=== PATIENT | male | born 1955 | race Caucasian/White ===

== ENCOUNTER 2016-11-26 16:25 | Inpatient (IN) | payer BC ==
[2016-11-26] MEDS ORDERED: CLINDAMYCIN PHOSPHATE 600 MG/4 ML VIAL ONE (17:02)
[2016-11-26] MEDS ORDERED: MORPHINE SULFATE 4 MG/ML SYRINGE ONE (17:03)
[2016-11-26] MEDS ORDERED: PROCHLORPERAZINE 5 MG/ML 2 ML VIAL ONE (17:03)
[2016-11-26] MEDS ORDERED: LACTATED RINGERS 1,000 ML ONE (17:03)
[2016-11-26] MEDS ORDERED: SODIUM CHLORIDE 0.9% 100 ML IV ONE (17:04)
[2016-11-26] MEDS ORDERED: VANCOMYCIN HCL 2.25 G in SODIUM CHLORIDE 0.9% 500 ML IV ONE (17:30)
[2016-11-26] MEDS ORDERED: PIPERACILLIN-TAZO PREMIX BAG 50 ML IV ONE (17:33)
[2016-11-26 17:50] LABS: ABSOLUTE NEUTROPHIL COUNT 18.2 K/mm3 (1.8-7.7); BASO # 0.1 K/mm3 (0.0-0.2); BASO % 0.2 % (0.2-1.0); EOS % 0.1 % (0.9-2.9); HEMATOCRIT 34.9 % (32.0-52.0); HEMOGLOBIN 11.9 gm/l (14.0-18.0); IMM NEUT # 0.2 K/mm3 (0-0.2); IMM NEUT% 0.7 % (0-1); LYMPH # 1.4 (1.0-4.8); LYMPH % 6.5 % (15-45); MEAN CELL VOLUME 90.9 fl (80.0-94.0); MEAN CORPUSCULAR HGB CONC 34.1 g/dl (33.0-37.0); MEAN PLATELET VOLUME 11.2 fl (7.4-10.4); MONO # 1.5 (0.0-0.8); NEUT % 85.5 % (43-75); PLATELET COUNT 300 K/mm3 (130-400); RED CELL DISTRIBUTION WIDTH 12.5 % (11.5-14.5)
[2016-11-26 18:06] LABS: ALB/GLOB RATIO 0.9 (>1.0); ALBUMIN 3.8 gm/dL (3.5-5.7); CALCIUM 9.5 mg/dL (8.6-10.3); MAGNESIUM 1.6 mg/dL (1.9-2.7)
[2016-11-26 18:14] LABS: INR 0.91; PROTHROMBIN TIME 9.6 SECONDS (9.3-11.4)
--- NOTE | 2016-11-26 18:17 | US ---
EXAMINATION: DUPLEX VENOUS DOPPLER ULTRASOUND: RIGHT LOWER EXTREMITY CLINICAL INDICATION: Right lower committee swelling. Cellulitis. COMPARISON: None TECHNIQUE: Both grayscale imaging and Doppler interrogation with spectral analysis and color flow was performed. Compression and flow with augmentation was also utilized. The common femoral vein to the posterior tibial and peroneal veins were assessed. FINDINGS:Appropriate compressibility and flow is demonstrated in the right common femoral, superficial femoral, popliteal, and peroneal and posterior tibial veins proximally. Normal Doppler flow with augmentation was also elicited. IMPRESSION: No evidence of right lower extremity deep venous thrombosis. The findings were uploaded to the electronic medical record for review at approximately 6:17 PM 11/26/2016
[2016-11-26 18:41] LABS: BAND 8 % (0-10); BASOPHIL 0 % (0-1); EOSINOPHIL 0 % (1-3); LYMPHOCYTE 12 % (15-45); MONOCYTE 2 % (4-12); NEUTROPHILS 78 % (43-75); PLATELET ESTIMATE NORMAL (NORMAL); TOTAL CELLS COUNTED 100
[2016-11-26 20:25] VITALS: BMI 32.7
[2016-11-26] MEDS ORDERED: BLISTEX LIPSTICK 1 EACH TP PRN (21:35)
[2016-11-26] MEDS ORDERED: BISACODYL 5 MG TABLET.EC PO PRN (21:35)
[2016-11-26] MEDS ORDERED: BISACODYL 10 MG SUP PR PRN (21:35)
[2016-11-26] MEDS ORDERED: MENTHOL/CETYLPYRD 1 EACH LOZENGE PO PRN (21:35)
[2016-11-26] MEDS ORDERED: ONDANSETRON 4 MG/2ML 2 ML VIAL IV PRN (21:39)
[2016-11-26] MEDS ORDERED: NICOTINE POLACRILEX 2 MG GUM PO PRN (21:51)
[2016-11-26] MEDS ORDERED: PUMP TUBING ONE (22:19)
[2016-11-26] MEDS: GABAPENTIN 300 MG CAPSULE PO SCH (22:24)
[2016-11-26] MEDS: SODIUM CHLORIDE 0.9% 1,000 ML IV SCH (22:24)
[2016-11-26] MEDS: OXYCODONE HCL 5 MG TABLET PO SCH (22:24)
[2016-11-26] MEDS: INSULIN GLARGINE (DOSE) 100 UNITS/ML UNIT SUB-Q SCH (22:25)
[2016-11-26] MEDS: ENOXAPARIN SODIUM 40 MG/0.4 ML SYRINGE SUB-Q SCH (22:25)
[2016-11-27] MEDS: PIPERACILLIN-TAZO PREMIX BAG 3.375 G in Premix (D5W) 50 ml 1 EACH IV SCH ×5 (00:24→23:04)
[2016-11-27] MEDS ORDERED: WATER FOR IRRIG,STERILE 500 ML BOT ONE (00:38)
[2016-11-27] MEDS: OXYCODONE HCL 5 MG TABLET PO SCH ×6 (04:07→20:56)
[2016-11-27] MEDS: SODIUM CHLORIDE 0.9% 1,000 ML IV SCH ×3 (05:40→23:55)
[2016-11-27 06:31] LABS: ABSOLUTE NEUTROPHIL COUNT 13.4 K/mm3 (1.8-7.7); BASO # 0.1 K/mm3 (0.0-0.2); BASO % 0.4 % (0.2-1.0); EOS # 0.1 (0.0-0.5); EOS % 0.8 % (0.9-2.9); HEMATOCRIT 32.8 % (32.0-52.0); HEMOGLOBIN 11.1 gm/l (14.0-18.0); IMM NEUT # 0.2 K/mm3 (0-0.2); IMM NEUT% 0.9 % (0-1); LYMPH # 1.8 (1.0-4.8); LYMPH % 10.2 % (15-45); MEAN CELL VOLUME 91.1 fl (80.0-94.0); MEAN CORPUSCULAR HEMOGLOBIN 30.8 pg (27.0-31.0); MEAN CORPUSCULAR HGB CONC 33.8 g/dl (33.0-37.0); MEAN PLATELET VOLUME 10.8 fl (7.4-10.4); MONO # 1.6 (0.0-0.8); MONO % 9.6 % (4-12); NEUT % 78.1 % (43-75); PLATELET COUNT 279 K/mm3 (130-400); RED CELL DISTRIBUTION WIDTH 12.5 % (11.5-14.5)
[2016-11-27 06:48] LABS: ALB/GLOB RATIO 0.9 (>1.0); ALBUMIN 3.4 gm/dL (3.5-5.7); CALCIUM 9.2 mg/dL (8.6-10.3)
--- NOTE | 2016-11-27 07:32 | HP ---
Umberto Alexandra ADMIT DATE: 11/26/2016 CHIEF COMPLAINT: Leg redness and swelling. HISTORY OF PRESENT ILLNESS: Umberto is a 60-year-old male with diabetes and a history of a complicated septic arthritis in his left hip back in 2014. He has also had a right sided hip arthroplasty and right sided tib/fib open reduction internal fixation in the past. He presented to the emergency room this evening with about a two day history of gradually worsening redness, swelling, and warmth starting in the right foot and now working its way up the right calf and into the right groin area. He has had no fevers, no chills. He feels well otherwise, really no pain. Given his history of complicated septic arthritis he became concerned about infection and presented to the emergency room for evaluation. In the emergency room, he was worked up and found to have a low grade fever, elevated white count, and evidence of a cellulitis. Given his history there was concern that this may end up being a complicated issue, so he was admitted to the hospitalist service with plans for IV antibiotics and orthopedic consult. REVIEW OF SYSTEMS: No headache, no visual disturbance, difficulty swallowing. No chest pain or shortness of breath. No cough. No heart palpitations. No nausea, vomiting, diarrhea. No change in bowel or bladder habits. He does have the right sided redness and warmth of the lower extremity as noted above. PAST MEDICAL HISTORY: 1. Septic left hip, onset 11/2014. He ended up undergoing extended antibiotics and antibiotic spacer placement performed on 01/15/2015 followed by further antibiotics and followed then by a left total hip arthroplasty 06/2015/ The initial septic arthritis was felt to be spontaneous. 2. Diabetes mellitus type 2. 3. Hypertension. 4. Osteoarthritis. 5. Hyperlipidemia. 6. History of paroxysmal atrial fibrillation in the distant past. 7. Work up for endocarditis associated with his left hip septic arthritis in 2014, ended up being negative for endocarditis. He had a transesophageal echocardiogram in 2014 showing he had a normal ejection fraction. He did have an angiogram back in 2008 that was within normal limits by report as well. PAST SURGICAL HISTORY: 1. Left hip excision/antibiotic spacer placement 01/15/2015 as noted above. 2. Left total hip arthroplasty 07/01/2015 as noted above. 3. Right hip total arthro[place] [address] Whitney. 4. Right tib/fib fracture repair 09/[address] Chávez. 5. Right wrist fracture repair in 1989. 6. Tonsillectomy in childhood. 7. Angiogram in 2008 as noted above. ALLERGIES: NAFCILLIN CAUSING A RASH. CURRENT MEDICATIONS: 1. Aspirin 325 by mouth daily. 2. Lantus 10 units subcutaneous at bedtime. 3. Neurontin 300 mg by mouth three times daily. 4. Diclofenac 75 mg by mouth twice daily. 5. Metformin 1000 mg by mouth twice daily. 6. Lisinopril 10 mg by mouth daily. 7. Glimepiride 4 mg by mouth daily. 8. Oxycodone 5 mg by mouth twice daily. SOCIAL HISTORY: He lives with his and two adult children. He is a disabled general warehouse associate. He does smoke about a pack and a half a day. No significant alcohol use. FAMILY HISTOR: Father at 79 of diabetes and congestive heart failure. Mother at 79 of diabetes. OBJECTIVE: VITAL SIGNS: Stable. Temperature of 100.4. GENERAL: This is a well developed middle aged male alert, calm, pleasant , and in no distress. HEENT: Benign. Oropharynx is moist. NECK: Supple. LUNGS: Clear. HEART: Regular. ABDOMEN: Soft. EXTREMITIES: No edema. He does have warmth and redness over the dorsum of the right foot extending up the calf and streaking up the inner right thigh to the groin. Rupert's sign is negative. Pulses are intact. Sensation is intact. At the ball of the right there is a puncture type wound, he does not think that he stepped on anything. It was explored in the emergency room and there were no foreign bodies. LABS: CBC with a white count 21.3, hemoglobin 11.9, hematocrit 34.9, platelets of 300. Chemistry panel, sodium 131, potassium 4.4, chloride 98, carbon dioxide 23, BUN 33, creatinine 1.3, glucose of 233. INR 0.91. Lactate of 1.4. Influenza A and B are negative. DIAGNOSTICS: Ultrasound of the leg is negative for deep venous thrombosis. ASSESSMENT: 1. Right lower extremity cellulitis in a patient with a history of complicated septic arthritis on the left. He does have a hardware in both the hip and in the tib/fib area on the right putting him at risk for again a complicated cellulitis/septic arthritis. 2. Diabetes mellitus type 2. 3. Hypertension. PLAN: Admitted to the floor. He was started on vancomycin and Zosyn in the emergency room. We will continue with this. His cultures on his previous septic arthritis were methicillin susceptible Staph and I anticipate this will be the same this time. Blood cultures have been drawn and are pending. For his diabetes we will place him on basal bolus. For this hypertension we will continue with his usual lisinopril. We will get orthopedic consult in the morning to guide further diagnostics and intervention. JOB: [id number] CC: Dr. Lady Duenas
[2016-11-27] MEDS: INSULIN ASPART (DOSE) 100 UNITS/1 ML SUB-Q PRN ×2 (08:05→12:10)
[2016-11-27] MEDS ORDERED: LISINOPRIL 10 MG TABLET PO SCH (09:00)
[2016-11-27] MEDS: ASPIRIN (ENTERIC COATED) 325 MG TABLET.EC PO SCH (09:11)
[2016-11-27] MEDS: GABAPENTIN 300 MG CAPSULE PO SCH ×3 (09:12→20:56)
[2016-11-27] MEDS ORDERED: VANCOMYCIN HCL 2 G in SODIUM CHLORIDE 0.9% 500 ML IV SCH (13:00)
--- NOTE | 2016-11-27 14:46 | PDOC43 ---
- Subjective Chief Complaint: Right leg redness and swelling Feels a little better but still swollen and tender. Would like to avoid PICC line. - Objective Vital Signs Temperature 98.6 F 11/27/16 13:25 Pulse Rate 90 11/27/16 13:25 Respiratory Rate 16 11/27/16 13:25 Blood Pressure 118/68 11/27/16 13:25 O2 Saturation by Pulse Oximetry 97 11/27/16 13:25 Oxygen Delivery Method Room Air Oxygen Flow Rate 0 Intake and Output 11/26/16 11/27/16 11/28/16 06:59 06:59 06:59 Intake Total 1674 1000 Output Total 1700 1000 Balance -26 0 General: Alert, Oriented x3, Cooperative, No Acute Distress HEENT: Mucous membr. moist/pink Lungs: Clear to Auscultation Bilaterally Cardiovascular: Regular Rate and Rhythm, No Murmur Abdomen: Soft, Normal Bowel Sounds, No Tenderness, No Masses Extremities: Edema (1+ on right), Normal Pulses, Other (erythema in medial thigh and ankle) Neurological: Normal Speech Psych/Mental Status: Normal Mood Laboratory 11/27/16 06:25 11/27/16 06:25 11/27/16 11/27/16 11/27/16 12:04 06:25 06:18 RBC 3.60 L BUN 30 H Estimated GFR 52 L POC Capillary Glucose 183 H 185 H AST 10 L Albumin 3.4 L Globulin 3.7 H Albumin/Globulin Ratio 0.9 L 11/26/16 21:46 RBC BUN Estimated GFR POC Capillary Glucose 195 H AST Albumin Globulin Albumin/Globulin Ratio Current Medications: Current meds reviewed in EMR. - Problems: Assessment/Plan (1) Cellulitis and abscess of foot Status: AcuteAssessment/Plan: Acute bacterial cellulitis with lymphangitis of the right foot and leg present on admit. Treated with Zosyn and Vanco but now has JESICA. Stop Vanco and await culture results. (2) JESICA (acute kidney injury) Status: AcuteAssessment/Plan: Baseline creatinine appears to be 0.7-1.0, now up to 1.4 possibly due to vancomycin. Hold vanco, hold lisinopril, continue hydration and follow. (3) Hyponatremia Status: ChronicAssessment/Plan: At his personal baseline. (4) DM2 (diabetes mellitus, type 2) Qualifiers: Diabetes mellitus complication status: without complication Diabetes mellitus buttermilk drier operator insulin use: with buttermilk drier operator use Qualifier Code: (E11.9) Type 2 diabetes mellitus without complications Status: ChronicAssessment/ Plan: Increase insulin as necessary to improve BG control. (5) HTN (hypertension), benign Status: ChronicAssessment/Plan: well controlled (6) Nicotine dependence Qualifiers: Nicotine product type: cigarettes Substance use status: in withdrawal Qualifier Code: (F17.213) Nicotine dependence, cigarettes, with withdrawal Status: ChronicAssessment/Plan: cessation counseling, replacement therapy (7) Anemia Status: ChronicAssessment/Plan: Mild and chronic, no w/u at this time. (8) Obesity (BMI 30.0-34.9) Status: ChronicAssessment/Plan: Complicates care of diabetes and cellulitis. VTE Prophylaxis: Enoxaparin Disposition: Anticipate home in 1-3 days.
[2016-11-27] MEDS: ENOXAPARIN SODIUM 40 MG/0.4 ML SYRINGE SUB-Q SCH (20:56)
[2016-11-27] MEDS: INSULIN GLARGINE (DOSE) 100 UNITS/ML UNIT SUB-Q SCH (20:56)
[2016-11-27] MEDS ORDERED: VANCOMYCIN HCL 0 G in SODIUM CHLORIDE 0.9% 250 ML IV SCH (23:45)
[2016-11-28] MEDS: VANCOMYCIN HCL 2 G in SODIUM CHLORIDE 0.9% 500 ML IV SCH ×2 (02:16→19:08)
[2016-11-28] MEDS: OXYCODONE HCL 5 MG TABLET PO SCH (02:20)
[2016-11-28] MEDS: PIPERACILLIN-TAZO PREMIX BAG 3.375 G in Premix (D5W) 50 ml 1 EACH IV SCH ×4 (05:10→23:10)
[2016-11-28 06:32] LABS: ABSOLUTE NEUTROPHIL COUNT 11.4 K/mm3 (1.8-7.7); BASO # 0.1 K/mm3 (0.0-0.2); BASO % 0.3 % (0.2-1.0); EOS # 0.1 (0.0-0.5); EOS % 0.5 % (0.9-2.9); HEMATOCRIT 29.1 % (32.0-52.0); HEMOGLOBIN 9.8 gm/l (14.0-18.0); IMM NEUT # 0.1 K/mm3 (0-0.2); IMM NEUT% 0.7 % (0-1); LYMPH # 1.8 (1.0-4.8); MEAN CELL VOLUME 91.2 fl (80.0-94.0); MEAN CORPUSCULAR HEMOGLOBIN 30.7 pg (27.0-31.0); MEAN CORPUSCULAR HGB CONC 33.7 g/dl (33.0-37.0); MEAN PLATELET VOLUME 11.1 fl (7.4-10.4); MONO # 1.7 (0.0-0.8); MONO % 11.1 % (4-12); NEUT % 75.4 % (43-75); PLATELET COUNT 278 K/mm3 (130-400); RED CELL DISTRIBUTION WIDTH 12.3 % (11.5-14.5)
[2016-11-28 07:00] LABS: CALCIUM 8.8 mg/dL (8.6-10.3)
--- NOTE | 2016-11-28 08:56 | PDOC43 ---
- Subjective Chief Complaint: Right leg redness and swelling c/o not able to sleep, pain in right leg and right arm - Objective Vital Signs Temperature 99.0 F 11/28/16 07:53 Pulse Rate 90 11/28/16 07:53 Respiratory Rate 18 11/28/16 07:53 Blood Pressure 129/72 11/28/16 07:53 O2 Saturation by Pulse Oximetry 98 11/28/16 07:53 Oxygen Delivery Method Nasal Cannula Oxygen Flow Rate 2 Intake and Output 11/27/16 11/28/16 11/29/16 06:59 06:59 06:59 Intake Total 1674 3600 Output Total 1700 4270 Balance -26 -670 General: Alert, Oriented x3, Cooperative, Mild Distress HEENT: Mucous membr. moist/pink Lungs: Clear to Auscultation Bilaterally Cardiovascular: Regular Rate and Rhythm Abdomen: Soft, Normal Bowel Sounds, No Tenderness, No Masses Extremities: Pulses Diminished but Palpable, Other (right foot and ankle edematous and red, right thigh no longer red) Neurological: Normal Speech Psych/Mental Status: Normal Mood Laboratory 11/28/16 05:10 11/28/16 05:10 11/28/16 11/27/16 11/27/16 05:10 20:54 16:39 RBC 3.19 L POC Capillary Glucose 216 H 111 H 11/27/16 12:04 RBC POC Capillary Glucose 183 H Current Medications: Current meds reviewed in EMR. - Problems: Assessment/Plan (1) Cellulitis and abscess of foot Status: AcuteAssessment/Plan: Acute bacterial cellulitis with lymphangitis of the right foot and leg present on admit. Treated with Zosyn and Vanco, await blood culture results (2) JESICA (acute kidney injury) Status: AcuteAssessment/Plan: Baseline creatinine appears to be 0.7-1.0, was 1.4 on 11/27 and vanco held for about 6 hours but foot looked worse so vanco restarted. Creatinine down to 1.2 today, continue to follow closely. (3) Hyponatremia Status: ChronicAssessment/Plan: At his personal baseline. 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 (5) HTN (hypertension), benign Status: ChronicAssessment/Plan: well controlled (6) Nicotine dependence Qualifiers: Nicotine product type: cigarettes Substance use status: in withdrawal Qualifier Code: (F17.213) Nicotine dependence, cigarettes, with withdrawal Status: ChronicAssessment/Plan: cessation counseling, replacement therapy (7) Anemia Status: ChronicAssessment/Plan: Mild and chronic, no w/u at this time. (8) Obesity (BMI 30.0-34.9) Status: ChronicAssessment/Plan: Complicates care of diabetes and cellulitis. (9) Insomnia Qualifiers: Insomnia type: primary Qualifier Code: (F51.01) Primary insomnia Status: AcuteAssessment/Plan: trial of trazadone at HS (10) CTS (carpal tunnel syndrome) Qualifiers: Laterality: right Qualifier Code: (G56.01) Carpal tunnel syndrome, right upper limb Status: ChronicAssessment/Plan: Contributing to his discomfort and insomnia, increase pain meds. VTE Prophylaxis: Enoxaparin Disposition: Anticipate home in 1-2 days.
[2016-11-28] MEDS: GABAPENTIN 300 MG CAPSULE PO SCH ×4 (10:02→22:56)
[2016-11-28] MEDS: ASPIRIN (ENTERIC COATED) 325 MG TABLET.EC PO SCH (10:02)
--- NOTE | 2016-11-28 12:49 | RAD ---
FEMUR RIGHT COMPARISON: None. HISTORY: Right lower extremity cellulitis Views: Right femur AP and lateral FINDINGS: Bones: No bone destruction or fracture. Normal mineralization. Partially visible internal fixation hardware in the tibia. Healed fracture deformity of the proximal fibula. Joints: Satisfactory appearance of right total hip arthroplasty. Normal right knee and sepsis pubis. Soft tissues: Normal. IMPRESSION: 1. No radiographic evidence of osteomyelitis. 2. Satisfactory appearance of right total hip arthroplasty. 3. Internal fixation hardware in the right tibia. Healed fracture deformity of the right fibula.
--- NOTE | 2016-11-28 12:57 | RAD ---
FOOT - RIGHT 2 VIEW COMPARISON: None. HISTORY: Right foot plantar wound and cellulitis. FINDINGS: Views: Right foot dorsoplantar and lateral. Bones: No osteomyelitis. Internal fixation hardware in the distal tibia. Joints: Advanced degenerative changes at the first metatarsophalangeal joint. Soft tissues: There is diffuse edema in the forefoot with subcutaneous air at the second intermetatarsal space. IMPRESSION: 1. Diffuse edema of the forefoot with air, evidence of cellulitis with gas forming organism. No evidence of osteomyelitis. 2. Severe osteoarthritis with the capsular hydroxy appetite deposition at the first metatarsophalangeal joint. 3. Edema in the right ankle. 4. Internal fixation hardware in the distal tibia with a broken screw.
--- NOTE | 2016-11-28 13:00 | RAD ---
LOWER LEG RIGHT COMPARISON: Right lower leg 2 views, 04/26/2015 HISTORY: Right lower extremity cellulitis FINDINGS: Views: AP and lateral right tibia fibula. Bones: Old fracture of the distal tibial diaphysis with internal fixation hardware. A screw at the distal tibia is broken. Old healed fracture the proximal diaphysis of the fibula. Joints: Normal. Soft tissues: Edema in the lower leg near the ankle. IMPRESSION: 1. Edema in the lower leg near the right ankle. 2. No evidence of osteomyelitis. A broken screw in the distal tibia. Old healed fractures of the tibia and the fibula.
--- NOTE | 2016-11-28 13:07 | CONS ---
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 He also has had a right total hip arthroplasty and he has undergone a right ORIF of a tibia-fibula fracture. All of these are several years back. His current complaint is right lower extremity pain. He was admitted through the ED, with a Hospitalist's consultation for concern for cellulitis and orthopedics. On evaluation today, the patient has complaints of pain, swelling and erythema for the last few days over his right lower extremity. He had what he refers to as a stone bruise where he stepped on something on the anterior portion of his right foot between his metatarsal heads. He states that he was able to debride this a little bit and he got what he thinks was a small clot of blood out of it, and since that time he has had increasing swelling and pain in the leg. Given his previous history of infections, he presented with concerns about this. He did not note any significant localizing pain to his hip or knee. He has had erythema that advanced all the way up to his right groin. He did endure some sensation of a bit of a fever, but overall has felt pretty good. He is currently on IV antibiotics to address the cellulitis and orthopedics was consulted to evaluate for any surgical indications. PAST MEDICAL HISTORY: Includes: 1. Diabetes. 2. Hypertension. 3. Hyperlipidemia. 4. Atrial fibrillation. 5. A workup for endocarditis that was negative. PAST SURGICAL HISTORY: Significant for the septic left hip in November of 2014. As noted, he ultimately underwent left total hip arthroplasty in June of 2015, which has been retained and successful at this point. He also is status post a right total hip arthroplasty with Dr. Whitney in 2008, which remains intact and functioning well, and a nail for a right tibia-fibula fracture [place] [address] Chávez. CURRENT MEDICATIONS: Per the Hospitalist's H&P. ALLERGIES: Per the Hospitalist's H&P. SOCIAL HISTORY: Per the Hospitalist's H&P. FAMILY HISTORY: Per the Hospitalist's H&P. PHYSICAL EXAMINATION: GENERAL: This is a well-developed and well-nourished male in no acute distress. He is awake, alert and conversant throughout the encounter. EXTREMITIES: A focused musculoskeletal examination of the right lower extremity shows erythema about the foot and ankle. He has significant swelling on the foot. He does have a palpable DP pulse. He has some ecchymosis and a small probably 3-4 mm wound on the plantar surface of his right foot in the region of the 3rd metatarsal head that does not have any localized erythema. There is no fluctuance and no indication of a local fluid collection. He is able to move all joints of the foot at the ankle and the hip without significant increases in his pain. He has no localizing tenderness to palpation and there is no palpable fluctuance or masses in the leg. His erythema per report is substantially improved from yesterday, and at this point advances to somewhere below the knee. There is no significant ecchymosis. His hip range of motion is appropriate for his prosthesis and he does not have any significant exacerbation of pain with motion of either his right or left hip. No imaging at this point of the extremities. He has an ultrasound that is negative for any DVT. ASSESSMENT: Appears to be simple cellulitis, without focal fluid collection or any surgical indication at this point. PLAN: I have asked for ESR and CRP to evaluate the patient in terms of our protocols for looking at infected hardware, but I think it is unlikely that we are dealing with any significant fluid collections that would be a surgical indication. We are going to get x-rays of this right lower extremity just to ensure that we are not missing something structural, but at this point I would say he can be weightbearing as tolerated on his bilateral lower extremities, with physical therapy as tolerated. I wish to keep an eye on this plantar foot wound and due to his daily wound care to it. I would like the leg elevated as much as he can tolerate during the time that he is in bed. I will follow-up on his x-rays and his labs, and we will provide additional input as needed. We will follow along while the patient is in the hospital.
[2016-11-28] MEDS: OXYCODONE HCL 5 MG TABLET PO PRN ×2 (14:12→19:15)
[2016-11-28] MEDS: SODIUM CHLORIDE 0.9% 1,000 ML IV SCH ×2 (14:35→21:54)
[2016-11-28] MEDS: INSULIN ASPART (DOSE) 100 UNITS/1 ML SUB-Q PRN ×2 (18:39→21:37)
[2016-11-28] MEDS: ENOXAPARIN SODIUM 40 MG/0.4 ML SYRINGE SUB-Q SCH ×2 (19:15→22:56)
[2016-11-28] MEDS: INSULIN GLARGINE (DOSE) 100 UNITS/ML UNIT SUB-Q SCH (21:37)
[2016-11-28] MEDS: TRAZODONE HCL 50 MG TABLET PO SCH (23:10)
[2016-11-29] MEDS: SODIUM CHLORIDE 0.9% 1,000 ML IV SCH ×3 (01:38→17:02)
[2016-11-29] MEDS: OXYCODONE HCL 5 MG TABLET PO PRN ×4 (01:39→21:25)
[2016-11-29] MEDS: PIPERACILLIN-TAZO PREMIX BAG 3.375 G in Premix (D5W) 50 ml 1 EACH IV SCH ×3 (05:07→17:50)
[2016-11-29 06:30] LABS: ABSOLUTE NEUTROPHIL COUNT 10.7 K/mm3 (1.8-7.7); BASO # 0.1 K/mm3 (0.0-0.2); BASO % 0.4 % (0.2-1.0); EOS # 0.1 (0.0-0.5); EOS % 0.5 % (0.9-2.9); HEMOGLOBIN 10.2 gm/l (14.0-18.0); IMM NEUT # 0.1 K/mm3 (0-0.2); IMM NEUT% 0.4 % (0-1); LYMPH # 1.6 (1.0-4.8); LYMPH % 11.4 % (15-45); MEAN CELL VOLUME 90.9 fl (80.0-94.0); MEAN CORPUSCULAR HEMOGLOBIN 30.9 pg (27.0-31.0); MEAN PLATELET VOLUME 10.7 fl (7.4-10.4); MONO # 1.5 (0.0-0.8); MONO % 10.5 % (4-12); NEUT % 76.8 % (43-75); PLATELET COUNT 305 K/mm3 (130-400)
[2016-11-29 06:53] LABS: CALCIUM 8.9 mg/dL (8.6-10.3)
[2016-11-29] MEDS ORDERED: SODIUM CHLORIDE 0.9% FLUSH 10 ML ONE (08:19)
[2016-11-29] MEDS ORDERED: IV START KIT ONE (08:19)
[2016-11-29] MEDS: GABAPENTIN 300 MG CAPSULE PO SCH ×3 (08:25→20:37)
[2016-11-29] MEDS: ASPIRIN (ENTERIC COATED) 325 MG TABLET.EC PO SCH (08:25)
[2016-11-29] MEDS: INSULIN ASPART (DOSE) 100 UNITS/1 ML SUB-Q PRN ×3 (08:27→21:26)
--- NOTE | 2016-11-29 10:10 | PDOC43 ---
- Subjective Chief Complaint: Right leg redness and swelling Grumpy but reports sleeping better with trazodone. - Objective Vital Signs Temperature 97.6 F 11/29/16 07:33 Pulse Rate 81 11/29/16 07:33 Respiratory Rate 17 11/29/16 07:45 Blood Pressure 142/80 11/29/16 07:33 O2 Saturation by Pulse Oximetry 96 11/29/16 07:33 Oxygen Delivery Method Room Air Oxygen Flow Rate 0 Intake and Output 11/28/16 11/29/16 11/30/16 06:59 06:59 06:59 Intake Total 3600 2720 480 Output Total 4270 3450 Balance -670 -730 480 General: Alert, Oriented x3, Cooperative, No Acute Distress HEENT: Mucous membr. moist/pink Lungs: Clear to Auscultation Bilaterally Cardiovascular: Regular Rate and Rhythm, No Murmur Abdomen: Soft, Normal Bowel Sounds, No Tenderness, No Masses Extremities: Edema (none on left), Pulses Diminished but Palpable, Other ( Erythema decreasing in right ankle and foot. Ecchymoses/necrosis on plantar aspect of foot increasing and has some drainage.) Neurological: Normal Speech Psych/Mental Status: Normal Mood Laboratory 11/29/16 05:20 11/29/16 05:20 11/29/16 11/29/16 11/28/16 07:37 05:20 21:24 RBC 3.30 L ESR POC Capillary Glucose 190 H 202 H C-Reactive Protein 11/28/16 11/28/16 11/28/16 18:20 11:24 05:10 RBC ESR > 150 H POC Capillary Glucose 180 H 136 H C-Reactive Protein 39.7 H Current Medications: Current meds reviewed in EMR. - Problems: Assessment/Plan (1) Cellulitis and abscess of foot Status: AcuteAssessment/Plan: Acute bacterial cellulitis with lymphangitis of the right foot and leg present on admit. Treated with Zosyn and Vanco. Lymphangitis improved but foot wound looks worse. X-ray with "air", CRP and ESR very high. Continue IV abx and repeat x-ray tomorrow. (2) JESICA (acute kidney injury) Status: AcuteAssessment/Plan: Baseline creatinine appears to be 0.7-1.0, was 1.4 on 11/27 and vanco held for about 6 hours but foot looked worse so vanco restarted. Creatinine down to 1.2 and stable, continue to follow closely. (3) Hyponatremia Status: ChronicAssessment/Plan: At his personal baseline. (4) DM2 (diabetes mellitus, type 2) Qualifiers: Diabetes mellitus complication status: without complication Diabetes mellitus assisted insulin use: with or nurse manager use Qualifier Code: (E11.9) Type 2 diabetes mellitus without complications Status: ChronicAssessment/ Plan: Increase insulin as necessary to improve BG control. (5) HTN (hypertension), benign Status: ChronicAssessment/Plan: well controlled (6) Nicotine dependence Qualifiers: Nicotine product type: cigarettes Substance use status: in withdrawal Qualifier Code: (F17.213) Nicotine dependence, cigarettes, with withdrawal Status: ChronicAssessment/Plan: cessation counseling, replacement therapy (7) Anemia Status: ChronicAssessment/Plan: Mild and chronic, no w/u at this time. (8) Obesity (BMI 30.0-34.9) Status: ChronicAssessment/Plan: Complicates care of diabetes and cellulitis. (9) Insomnia Qualifiers: Insomnia type: primary Qualifier Code: (F51.01) Primary insomnia Status: AcuteAssessment/Plan: trazodone helpful (10) CTS (carpal tunnel syndrome) Qualifiers: Laterality: right Qualifier Code: (G56.01) Carpal tunnel syndrome, right upper limb Status: ChronicAssessment/Plan: Contributing to his discomfort and insomnia, increase pain meds. VTE Prophylaxis: Enoxaparin Disposition: Unclear, may need PICC and or nurse manager IV abx.
[2016-11-29] MEDS: VANCOMYCIN HCL 2 G in SODIUM CHLORIDE 0.9% 500 ML IV SCH (13:11)
[2016-11-29] MEDS: INSULIN GLARGINE (DOSE) 100 UNITS/ML UNIT SUB-Q SCH (20:36)
[2016-11-29] MEDS: ENOXAPARIN SODIUM 40 MG/0.4 ML SYRINGE SUB-Q SCH (20:36)
[2016-11-29] MEDS: TRAZODONE HCL 50 MG TABLET PO SCH (21:25)
[2016-11-30] MEDS: PIPERACILLIN-TAZO PREMIX BAG 3.375 G in Premix (D5W) 50 ml 1 EACH IV SCH ×5 (00:22→22:37)
[2016-11-30] MEDS: SODIUM CHLORIDE 0.9% 1,000 ML IV SCH ×2 (05:44→14:22)
[2016-11-30 06:15] LABS: ABSOLUTE NEUTROPHIL COUNT 10.5 K/mm3 (1.8-7.7); BASO # 0.1 K/mm3 (0.0-0.2); BASO % 0.5 % (0.2-1.0); EOS # 0.1 (0.0-0.5); EOS % 0.7 % (0.9-2.9); HEMATOCRIT 29.9 % (32.0-52.0); IMM NEUT # 0.1 K/mm3 (0-0.2); IMM NEUT% 0.7 % (0-1); LYMPH # 1.5 (1.0-4.8); LYMPH % 11.4 % (15-45); MEAN CELL VOLUME 92.6 fl (80.0-94.0); MEAN CORPUSCULAR HGB CONC 33.4 g/dl (33.0-37.0); MONO # 1.3 (0.0-0.8); MONO % 9.6 % (4-12); NEUT % 77.1 % (43-75); PLATELET COUNT 334 K/mm3 (130-400); RED CELL DISTRIBUTION WIDTH 11.9 % (11.5-14.5)
[2016-11-30 06:33] LABS: CALCIUM 8.9 mg/dL (8.6-10.3)
[2016-11-30 06:35] LABS: C-REACTIVE PROTEIN 41.8 mg/dl (<1.0)
[2016-11-30] MEDS: VANCOMYCIN HCL 2 G in SODIUM CHLORIDE 0.9% 500 ML IV SCH (07:31)
[2016-11-30] MEDS: INSULIN ASPART (DOSE) 100 UNITS/1 ML SUB-Q PRN ×2 (08:44→11:47)
[2016-11-30] MEDS: GABAPENTIN 300 MG CAPSULE PO SCH ×3 (08:45→21:15)
[2016-11-30] MEDS: OXYCODONE HCL 5 MG TABLET PO PRN ×3 (08:45→21:24)
[2016-11-30] MEDS: ASPIRIN (ENTERIC COATED) 325 MG TABLET.EC PO SCH (08:46)
--- NOTE | 2016-11-30 10:17 | RAD ---
FOOT - RIGHT 2 VIEW COMPARISON: Right foot 2 views, 11/28/2016 HISTORY: Right foot cellulitis. FINDINGS: Views: Right foot dorsoplantar and lateral. Bones: No change. No bone destruction. Fracture and hardware in the distal tibia. Joints: No change. Severe osteoarthritis with capsular calcification at the first metatarsophalangeal joint. Soft tissues: No change. Gas within the soft tissues of the second intermetatarsal space. Edema in the forefoot. IMPRESSION: 1. No change. Cellulitis with gas in the soft tissues of the second intertarsal space. 2. No evidence of osteomyelitis. 3. Severe osteoarthritis with capsular calcification at the first metatarsophalangeal joint.
--- NOTE | 2016-11-30 10:33 | PDOC43 ---
- Subjective Chief Complaint: Right leg redness and swelling Denies new complaints. - Objective Vital Signs Temperature 98.0 F 11/30/16 08:03 Pulse Rate 72 11/30/16 08:03 Respiratory Rate 20 11/30/16 08:03 Blood Pressure 120/72 11/30/16 08:03 O2 Saturation by Pulse Oximetry 95 11/30/16 08:03 Oxygen Delivery Method Room Air Oxygen Flow Rate 0 Intake and Output 11/29/16 11/30/16 12/01/16 06:59 06:59 06:59 Intake Total 2720 6165 Output Total 3450 4425 Balance -730 1740 General: Alert, Oriented x3, Cooperative, No Acute Distress HEENT: Mucous membr. moist/pink Lungs: Clear to Auscultation Bilaterally Cardiovascular: Regular Rate and Rhythm, No Murmur Abdomen: Soft, Normal Bowel Sounds, No Tenderness, No Masses Extremities: Edema (mild in right foot), Normal Pulses, Other (erythema still present in foot but not ankle, wound draining and may have necrosis and/or abscess deep to thick calus.) Skin: Normal Color Neurological: Normal Speech Psych/Mental Status: Normal Mood Laboratory 11/30/16 05:30 11/30/16 05:30 11/30/16 11/29/16 11/29/16 05:30 20:35 17:04 RBC 3.23 L ESR 134 H POC Capillary Glucose 242 H 245 H C-Reactive Protein 41.8 H Vancomycin Trough 11/29/16 11/29/16 12:00 11:43 RBC ESR POC Capillary Glucose 141 H C-Reactive Protein Vancomycin Trough 12.3 H Current Medications: Current meds reviewed in EMR. - Problems: Assessment/Plan (1) Cellulitis and abscess of foot Status: AcuteAssessment/Plan: Acute bacterial cellulitis with lymphangitis of the right foot and leg present on admit. Treated with Zosyn and Vanco. Lymphangitis improved but foot wound looks worse. X-ray with "air", CRP and ESR very high on 11/29 and repeat today same. Continue IV abx. Consider debriedment of right foot wound per orthopedics. (2) JESICA (acute kidney injury) Status: AcuteAssessment/Plan: Baseline creatinine appears to be 0.7-1.0, was 1.4 on 11/27 and vanco held for about 6 hours but foot looked worse so vanco restarted. Creatinine down to 1.2 and stable, continue to follow closely. (3) Hyponatremia Status: ChronicAssessment/Plan: At his personal baseline. (4) DM2 (diabetes mellitus, type 2) Qualifiers: Diabetes mellitus complication status: without complication Diabetes mellitus skilled nursing insulin use: with skilled nursing use Qualifier Code: (E11.9) Type 2 diabetes mellitus without complications Status: ChronicAssessment/ Plan: On basal lantus and high dose correction aspart. Add scheduled prandial aspart. (5) HTN (hypertension), benign Status: ChronicAssessment/Plan: well controlled (6) Nicotine dependence Qualifiers: Nicotine product type: cigarettes Substance use status: in withdrawal Qualifier Code: (F17.213) Nicotine dependence, cigarettes, with withdrawal Status: ChronicAssessment/Plan: cessation counseling, replacement therapy (7) Anemia Status: ChronicAssessment/Plan: Mild and chronic, no w/u at this time. (8) Obesity (BMI 30.0-34.9) Status: ChronicAssessment/Plan: Complicates care of diabetes and cellulitis. (9) Insomnia Qualifiers: Insomnia type: primary Qualifier Code: (F51.01) Primary insomnia Status: AcuteAssessment/Plan: trazodone helpful (10) CTS (carpal tunnel syndrome) Qualifiers: Laterality: right Qualifier Code: (G56.01) Carpal tunnel syndrome, right upper limb Status: ChronicAssessment/Plan: Contributing to his discomfort and insomnia, takes oxycodone 5 mg BID at baseline, may have up to 10 mg Q3h prn. VTE Prophylaxis: Enoxaparin--hold for surgery. Disposition: Unclear, may need PICC and skilled nursing IV abx. Likely to need wound vac post surgery.
[2016-11-30] MEDS: INSULIN ASPART (DOSE) 100 UNITS/1 ML SUB-Q SCH ×2 (12:51→20:33)
[2016-11-30] MEDS ORDERED: PROPOFOL 40 ML IV ONE (16:02)
[2016-11-30] MEDS ORDERED: LIDOCAINE 2% (PRES FREE) 5 ML VIAL ONE (16:02)
[2016-11-30] MEDS ORDERED: ONDANSETRON 4 MG/2ML 2 ML VIAL ONE (16:02)
[2016-11-30] MEDS ORDERED: MIDAZOLAM HCL 1 MG/ML 2ML VIAL ONE (16:02)
[2016-11-30] MEDS ORDERED: FENTANYL 5 ML ONE (16:02)
[2016-11-30] MEDS ORDERED: ONDANSETRON 4 MG/2ML 2 ML VIAL IV PRN (17:31)
[2016-11-30] MEDS ORDERED: ATROPINE SULFATE 0.4 MG/1 ML VIAL IV PRN (17:31)
[2016-11-30] MEDS ORDERED: FENTANYL 100 MCG/2 ML VIAL IV PRN (17:31)
[2016-11-30] MEDS ORDERED: NALOXONE HCL 0.4 MG/ML VIAL IV PRN (17:31)
[2016-11-30] MEDS ORDERED: PROMETHAZINE HCL 25 MG/ML VIAL IM PRN (17:31)
--- NOTE | 2016-11-30 17:33 | PCMBPN ---
Brief Post Op Note: Date of Procedure: 11/30/16 Start Time: 1630 Preoperative Diagnosis: 1. left foot infection Postoperative Diagnosis: 1. Same Procedure: left foot I&D with wound vac placement Surgeon: Lamont Duenas MD Assist: none Anesthesia: Thomas Mckinney Findings: as above Condition: stable to PACU Complications: none IV Fluids: 600 mLs of LR Urine Output: 0 mLs Estimated Blood Loss: 10 mLs Tourniquet Time: none Specimens: swabs x 2, tissue for culture Implants: wound vac sponges x 2 Drains: wound vac\ Lamont Duenas MD
[2016-11-30] MEDS ORDERED: SODIUM CHLORIDE 0.9% 1,000 ML IV SCH (17:45)
[2016-11-30] MEDS: HYDROMORPHONE HCL 1 MG/ML SYRINGE IV PRN ×2 (17:59→18:17)
--- NOTE | 2016-11-30 19:12 | RAD ---
Exam: Two-view right foot 1842 hours COMPARISON: 11/30/2016 1149 hours and 11/28/2016 INDICATION: Postop. FINDINGS: AP and lateral views of the right foot were obtained. A dressing is now seen along the dorsal aspect of the foot at the level of the metacarpal heads, overlying the third metacarpal head. Soft tissue swelling persists although the previously described subcutaneous gas is no longer present. Degenerative changes are again appreciated within the first MTP joint, with apparent capsular calcification as described earlier. Post surgical changes are seen within the distal tibia but incompletely visualized. IMPRESSION: Interval evacuation of this subcutaneous gas from the right foot, with placement of a dressing.
[2016-11-30] MEDS: INSULIN GLARGINE (DOSE) 100 UNITS/ML UNIT SUB-Q SCH (21:14)
[2016-11-30] MEDS: TRAZODONE HCL 50 MG TABLET PO SCH (21:15)
[2016-12-01] MEDS: VANCOMYCIN HCL 2 G in SODIUM CHLORIDE 0.9% 500 ML IV SCH ×2 (00:48→19:04)
[2016-12-01] MEDS: PIPERACILLIN-TAZO PREMIX BAG 3.375 G in Premix (D5W) 50 ml 1 EACH IV SCH ×4 (02:50→20:37)
--- NOTE | 2016-12-01 08:04 | PDOC43 ---
- Subjective Findings: Feeling OK this AM, pain improved. Subjective: Reports Pain Tolerable, Denies Chest Pain, Denies Shortness of Breath, Denies Nausea, Denies Vomiting, Denies Fever - Objective Vital Signs Temperature 98.7 F 12/01/16 00:25 Pulse Rate 86 12/01/16 00:25 Respiratory Rate 18 12/01/16 00:25 Blood Pressure 114/68 12/01/16 00:25 O2 Saturation by Pulse Oximetry 92 12/01/16 00:25 Oxygen Delivery Method Room Air Oxygen Flow Rate 0 Laboratory 11/30/16 05:30 11/30/16 05:30 12/01/16 11/30/16 11/30/16 07:35 21:13 17:30 POC Capillary Glucose 178 H 161 H 117 H 11/30/16 11:19 POC Capillary Glucose 168 H Active Medication Orders Category Date Time Status Aspirin (Enteric Coated) [Ecotrin] Med 11/27/16 09:00 Active 325 mg PO DAILY Bisacodyl [Dulcolax] Med 11/26/16 21:35 Active 10 mg [place] DAILY PRN Bisacodyl [Dulcolax] Med 11/26/16 21:35 Active 5 mg PO DAILY PRN Enoxaparin Sodium [Lovenox] Med 11/26/16 21:45 Hold 40 mg SUB-Q 2100 Gabapentin [Neurontin] Med 11/26/16 22:10 Active 300 mg PO TID Insulin Aspart (Dose) [Novolog (Dose)] Med 11/30/16 13:00 Active 5 units SUB-Q TIDWM Insulin Aspart (Dose) [Novolog (Dose)] Med 11/27/16 14:38 Active See Protocol SUB-Q WM/BEDTIME PRN Insulin Glargine (Dose) [Lantus (Dose)] Med 11/29/16 10:09 Active 25 units SUB-Q 2100 [place] [Blistex] Med 11/26/16 21:35 Active 1 each TP PRN PRN Lisinopril [Prinivil] Med 11/27/16 09:00 Hold 10 mg PO DAILY Menthol/Cetylpyridinium [Cepacol] Med 11/26/16 21:35 Active 1 each PO PRN PRN Nicotine Polacrilex Gum [Nicorette Gum] Med 11/26/16 21:51 Active 2 mg PO Q1H PRN Ondansetron 4 mg/2ml Vial [Zofran] Med 11/26/16 21:39 Active 4 mg IV Q3H PRN Oxycodone HCl [Roxicodone] Med 11/28/16 08:58 Active 5 - 10 mg PO Q3H PRN Piperacillin-Tazo Premix Bag [Zosyn 3.375 G] 3.375 g Med 11/30/16 20:00 Active Premix (D5W) 50 ml 1 each IV Q6H Sodium Chloride 0.9% 100 ml Med 11/26/16 21:35 Active IV PRN Sodium Chloride 0.9% Flush [Normal Saline 10ml Flush] Med 11/26/16 21:35 Active 10 - 50 ml IV PRN PRN Sodium Chloride 0.9% Flush [Normal Saline 10ml Flush] Med 11/27/16 01:00 Active 10 ml IV Q8HR Trazodone HCl [Desyrel] Med 11/28/16 21:00 Active 50 mg PO BEDTIME Vancomycin HCl 2 g Med 11/28/16 01:00 Active Sodium Chloride 0.9% 500 ml IV Q18H Intake and Output 11/29/16 11/30/16 12/01/16 23:59 23:59 23:59 Intake Total 5523 2883 2724 Output Total 4223 8455 650 Balance 1372 1718 2074 General: Afebrile, No Acute Distress HEENT: EOMI Lungs: Normal Air Movement Abdomen: Soft, No Tenderness Skin: Normal Color, Warm, Dry, Intact Neurological: Grossly Intact, Alert, Oriented x 4, Normal Speech Psych/Mental Status: Normal Affect, Normal Mood - Right Lower Extremity Incision: Dressing Clean/Dry/Intact, Drainage Motor: Extensor Hallucis Longus: 5/5, Tibialis Anterior: 5/5, Gastrocnemius: 5/5 , Peroneals: 5/5, Quadriceps: 5/5 Gross Sensation to Light Touch: Present: Deep Peroneal Nerve, Superficial Peroneal Nerve Capillary Refill: < 3 Seconds - Problems (1) Cellulitis and abscess of foot Status: AcuteAssessment/Plan: POD#1 R foot I&D with wound VAC 1. Physical Therapy: NWB RLE; train on crutches/walker/kneeling scooter 2. Pain Control: Oxycodone, adequate 3. DVT Prophylaxis: Lovenox 4. Disposition: Likely 2-3 additional days stay, plan wound VAC change tomorrow or 5. Medical Issues: per hospitalist Lamont Duenas MD
[2016-12-01] MEDS ORDERED: SODIUM CHLORIDE 0.9% FLUSH 10 ML ONE (08:05)
[2016-12-01] MEDS ORDERED: IV START KIT ONE (08:05)
[2016-12-01] MEDS: GABAPENTIN 300 MG CAPSULE PO SCH ×3 (08:25→20:37)
[2016-12-01] MEDS: ASPIRIN (ENTERIC COATED) 325 MG TABLET.EC PO SCH (08:25)
[2016-12-01] MEDS: OXYCODONE HCL 5 MG TABLET PO PRN ×3 (08:34→20:37)
[2016-12-01] MEDS: INSULIN ASPART (DOSE) 100 UNITS/1 ML SUB-Q PRN ×3 (09:14→18:17)
[2016-12-01] MEDS: INSULIN ASPART (DOSE) 100 UNITS/1 ML SUB-Q SCH ×3 (09:35→18:16)
--- NOTE | 2016-12-01 12:38 | PDOC43 ---
- Subjective Chief Complaint: Right leg redness and swelling/foot abscess Patient reports doing about the same. No new c/o. Has questions about duration of tx, therapy choices. He previously had a 9 month course of antibiotics for a spontaneous ? L hip infection, had seen Dr Coley. He is concerned that his labs (ESR and CRP?) did not return to normal for a long time after treatment. Otherwise, breathing, eating, pain control doing ok. - Objective Vital Signs Temperature 98.0 F 12/01/16 08:50 Pulse Rate 84 12/01/16 08:50 Respiratory Rate 20 12/01/16 08:50 Blood Pressure 120/74 12/01/16 08:50 O2 Saturation by Pulse Oximetry 93 12/01/16 08:50 Oxygen Delivery Method Room Air Oxygen Flow Rate 0 Vital Signs Last 12 Hours Temp Pulse Resp BP Pulse Ox 12/01/16 08:50 98.0 F 84 20 120/74 93 12/01/16 00:25 98.7 F 86 18 114/68 92 Intake and Output 11/29/16 11/30/16 12/01/16 23:59 23:59 23:59 Intake Total 5597 4513 2724 Output Total 4225 2795 650 Balance 1372 1718 2074 General: Alert, Cooperative Lungs: Clear to Auscultation Bilaterally, Normal Air Movement Cardiovascular: Regular Rate and Rhythm Abdomen: Soft, Normal Bowel Sounds, Non-Distended, No Tenderness Extremities: Other (wound vac on R foot distally. ONychomycosis bilat.), No Edema Skin: Normal Color Neurological: Normal Speech Psych/Mental Status: Other (Seems sl irritated at having this infection, wanting to have specific answers) Laboratory 11/30/16 05:30 11/30/16 05:30 12/01/16 11/30/16 11/30/16 07:35 21:13 17:30 POC Capillary Glucose 178 H 161 H 117 H Wound with 1+ GPC, ID in progress. Current Medications: Current meds reviewed in EMR. Active Medications Aspirin (Ecotrin) 325 mg PO DAILY NANCY Last Admin: 12/01/16 08:25 Dose: 325 mg Benzocaine/Menthol (Cepacol) 1 each PO PRN PRN PRN Reason: Sore Throat Bisacodyl (Dulcolax) 10 mg [place] DAILY PRN PRN Reason: Constipation Bisacodyl (Dulcolax) 5 mg PO DAILY PRN PRN Reason: Constipation Enoxaparin Sodium (Lovenox) 40 mg SUB-Q 2100 [facility] Last Admin: 11/29/16 20:36 Dose: 40 mg Gabapentin (Neurontin) 300 mg PO TID [facility] Last Admin: 12/01/16 08:25 Dose: 300 mg Sodium Chloride (Sodium Chloride 0.9%) 100 mls @ 25 mls/hr IV PRN PRN PRN Reason: Flush Vancomycin HCl 2 g/ Sodium (Chloride) 540 mls @ 270 mls/hr IV Q18H [facility] Last Admin: 12/01/16 00:48 Dose: 270 mls/hr Piperacillin/Tazobactam/Dextrose 3.375 g/ Premix (D5W) 50 ml 50 mls @ 100 mls/ hr IV Q6H [facility] Last Admin: 12/01/16 07:56 Dose: 100 mls/hr Insulin Aspart (Novolog (Dose)) 0 units SUB-Q WM/BEDTIME PRN; Protocol PRN Reason: Blood Sugar > Last Admin: 12/01/16 09:14 Dose: 4 units Insulin Aspart (Novolog (Dose)) 5 units SUB-Q TIDWM [facility] Last Admin: 12/01/16 09:35 Dose: 5 units Insulin Glargine (Lantus (Dose)) 25 units SUB-Q 2100 [facility] Last Admin: 11/30/16 21:14 Dose: 25 units Lisinopril (Prinivil) 10 mg PO DAILY [facility] Last Admin: 11/27/16 09:11 Dose: 10 mg Nicotine Polacrilex (Nicorette Gum) 2 mg PO Q1H PRN PRN Reason: Withdrawal Symptoms Ondansetron HCl (Zofran) 4 mg IV Q3H PRN PRN Reason: Nausea/Vomiting Oxycodone HCl (Roxicodone) 5 - 10 mg PO Q3H PRN PRN Reason: Pain (Moderate) Last Admin: 12/01/16 08:34 Dose: 5 mg Petrolatum/Paraffin/Mineral Oil (Blistex) 1 each TP PRN PRN PRN Reason: Dry and/or chapped lips Sodium Chloride (Normal Saline 10ml Flush) 10 - 50 ml IV PRN PRN PRN Reason: IV Flush Last Admin: 11/29/16 21:49 Dose: 10 ml Sodium Chloride (Normal Saline 10ml Flush) 10 ml IV Q8HR [facility] Last Admin: 12/01/16 00:50 Dose: 10 ml Trazodone HCl (Desyrel) 50 mg PO BEDTIME [facility] Last Admin: 11/30/16 21:15 Dose: 50 mg - Problems: Assessment/Plan (1) Cellulitis and abscess of foot Status: AcuteAssessment/Plan: Acute bacterial cellulitis with lymphangitis of the right foot and leg present on admit. GPC on culture, final results / sensitivity pending. On Zosyn and Vanco, s/p I&D on 11/30; appreciate ortho care. CRP and ESR very high, but improving so far. Anticipate he will need follow up with ID. (2) DM2 (diabetes mellitus, type 2) Qualifiers: Diabetes mellitus complication status: without complication Diabetes mellitus watermelon inspector insulin use: with jail use Qualifier Code: (E11.9) Type 2 diabetes mellitus without complications Status: ChronicAssessment/ Plan: On basal lantus and high dose correction aspart, prandial aspart. 117-242 on recent testing. Hope to see some improvement as infection improves. (3) Anemia Qualifiers: Anemia type: other cause Other causes of anemia: chronic disease, other Qualifier Code: (D63.8) Anemia in other chronic diseases classified elsewhere Status: ChronicAssessment/Plan: Mild and chronic, no w/u at this time. Suspect due to acute/chronic infectious illness, with frequent blood draws contributing. VTE Prophylaxis: Enoxaparin--held for surgery. Disposition: Unclear, may need PICC (awaiting cx) and watermelon inspector IV abx. Using wound vac post surgery.
[2016-12-01 18:46] LABS: VANCOMYCIN TROUGH 13.4 ug/ml (5.0-10.0)
[2016-12-01] MEDS: SODIUM CHLORIDE 0.9% 100 ML IV PRN (19:04)
[2016-12-01] MEDS: INSULIN GLARGINE (DOSE) 100 UNITS/ML UNIT SUB-Q SCH (20:37)
[2016-12-01] MEDS: TRAZODONE HCL 50 MG TABLET PO SCH (20:37)
[2016-12-02] MEDS: PIPERACILLIN-TAZO PREMIX BAG 3.375 G in Premix (D5W) 50 ml 1 EACH IV SCH ×4 (01:48→20:56)
[2016-12-02] MEDS ORDERED: PUMP TUBING ONE (07:52)
--- NOTE | 2016-12-02 07:53 | PDOC43 ---
- Subjective Findings: POD2 Right Foot I&D and wound Vac placement. Subjective: Reports Pain Tolerable - Objective Vital Signs Temperature 97.7 F 12/02/16 07:37 Pulse Rate 64 12/02/16 07:37 Respiratory Rate 17 12/02/16 07:37 Blood Pressure 136/77 12/02/16 07:37 O2 Saturation by Pulse Oximetry 95 12/02/16 07:37 Oxygen Delivery Method Room Air Oxygen Flow Rate 0 Laboratory 11/30/16 05:30 12/02/16 06:05 12/01/16 12/01/16 12/01/16 20:36 18:10 18:08 POC Capillary Glucose 199 H 200 H Vancomycin Trough 13.4 H 12/01/16 12:56 POC Capillary Glucose 180 H Vancomycin Trough Active Medication Orders Category Date Time Status Aspirin (Enteric Coated) [Ecotrin] Med 11/27/16 09:00 Active 325 mg PO DAILY Bisacodyl [Dulcolax] Med 11/26/16 21:35 Active 10 mg [place] DAILY PRN Bisacodyl [Dulcolax] Med 11/26/16 21:35 Active 5 mg PO DAILY PRN Enoxaparin Sodium [Lovenox] Med 11/26/16 21:45 Hold 40 mg SUB-Q 2100 Gabapentin [Neurontin] Med 11/26/16 22:10 Active 300 mg PO TID Insulin Aspart (Dose) [Novolog (Dose)] Med 11/30/16 13:00 Active 5 units SUB-Q TIDWM Insulin Aspart (Dose) [Novolog (Dose)] Med 11/27/16 14:38 Active See Protocol SUB-Q WM/BEDTIME PRN Insulin Glargine (Dose) [Lantus (Dose)] Med 11/29/16 10:09 Active 25 units SUB-Q 2100 Lip [place] [Blistex] Med 11/26/16 21:35 Active 1 each TP PRN PRN Lisinopril [Prinivil] Med 11/27/16 09:00 Hold 10 mg PO DAILY Menthol/Cetylpyridinium [Cepacol] Med 11/26/16 21:35 Active 1 each PO PRN PRN Nicotine Polacrilex Gum [Nicorette Gum] Med 11/26/16 21:51 Active 2 mg PO Q1H PRN Ondansetron 4 mg/2ml Vial [Zofran] Med 11/26/16 21:39 Active 4 mg IV Q3H PRN Oxycodone HCl [Roxicodone] Med 11/28/16 08:58 Active 5 - 10 mg PO Q3H PRN Piperacillin-Tazo Premix Bag [Zosyn 3.375 G] 3.375 g Med 11/30/16 20:00 Active Premix (D5W) 50 ml 1 each IV Q6H Sodium Chloride 0.9% 100 ml Med 11/26/16 21:35 Active IV PRN Sodium Chloride 0.9% Flush [Normal Saline 10ml Flush] Med 11/26/16 21:35 Active 10 - 50 ml IV PRN PRN Sodium Chloride 0.9% Flush [Normal Saline 10ml Flush] Med 11/27/16 01:00 Active 10 ml IV Q8HR Trazodone HCl [Desyrel] Med 11/28/16 21:00 Active 50 mg PO BEDTIME Vancomycin HCl 2 g Med 11/28/16 01:00 Active Sodium Chloride 0.9% 500 ml IV Q18H Intake and Output 11/30/16 12/01/16 12/02/16 23:59 23:59 23:59 Intake Total 2225 1424 1210 Output Total 9461 8710 1800 Balance 1966 -099 -881 General: Afebrile Lungs: Normal Air Movement Skin: Normal Color, Warm, Dry - Right Lower Extremity Incision: Dressing Clean/Dry/Intact (Wound Vac in place, decresed erythema today , active motion of foot intact.) - Problems (1) Cellulitis and abscess of foot Status: AcuteAssessment/Plan: POD#1 R foot I&D with wound VAC 1. Physical Therapy: NWB RLE; train on crutches/walker/kneeling scooter 2. Pain Control: Oxycodone, adequate 3. DVT Prophylaxis: Lovenox 4. Disposition: Likely 2-3 additional days stay, plan wound VAC change tomorrow or 5. Medical Issues: per hospitalist Lamont Duenas MD - Additional Comments POD2 Right foot I&D and wound Vac placement. On IV antibiotics for preliminary Culture: Gram positive cocci. 1. Physical Therapy: Refer to Dr. Duenas instructions. 2. Pain Control: Multimodal pain control as needed. 3. DVT Prophylaxis: Lovenox and ASA 325mg 4. Disposition: Possible Discharge home tomorrow if improving labs and foot appearance. 5. Medical Issues: No new medical problems, Hospitalist involved in care.
[2016-12-02 08:03] LABS: ABSOLUTE NEUTROPHIL COUNT 8.9 K/mm3 (1.8-7.7); BASO # 0.1 K/mm3 (0.0-0.2); BASO % 0.4 % (0.2-1.0); EOS # 0.3 (0.0-0.5); EOS % 2.3 % (0.9-2.9); HEMOGLOBIN 9.9 gm/l (14.0-18.0); IMM NEUT # 0.1 K/mm3 (0-0.2); IMM NEUT% 0.6 % (0-1); LYMPH # 1.4 (1.0-4.8); LYMPH % 11.8 % (15-45); MEAN CELL VOLUME 92.9 fl (80.0-94.0); MEAN CORPUSCULAR HEMOGLOBIN 30.7 pg (27.0-31.0); MEAN PLATELET VOLUME 10.3 fl (7.4-10.4); MONO # 0.9 (0.0-0.8); MONO % 7.8 % (4-12); NEUT % 77.1 % (43-75); PLATELET COUNT 387 K/mm3 (130-400); RED CELL DISTRIBUTION WIDTH 12.1 % (11.5-14.5)
[2016-12-02] MEDS: ASPIRIN (ENTERIC COATED) 325 MG TABLET.EC PO SCH (08:25)
[2016-12-02] MEDS: OXYCODONE HCL 5 MG TABLET PO PRN ×3 (08:25→19:27)
[2016-12-02] MEDS: GABAPENTIN 300 MG CAPSULE PO SCH ×3 (08:25→20:56)
[2016-12-02] MEDS: INSULIN ASPART (DOSE) 100 UNITS/1 ML SUB-Q PRN (08:41)
[2016-12-02] MEDS: INSULIN ASPART (DOSE) 100 UNITS/1 ML SUB-Q SCH ×3 (09:31→19:05)
[2016-12-02] MEDS: VANCOMYCIN HCL 2 G in SODIUM CHLORIDE 0.9% 500 ML IV SCH (15:04)
[2016-12-02] MEDS ORDERED: VANCOMYCIN HCL 0 G in SODIUM CHLORIDE 0.9% 250 ML IV SCH (16:30)
--- NOTE | 2016-12-02 16:56 | PDOC43 ---
- Subjective Chief Complaint: Right leg redness and swelling/foot abscess Patient awake, aggravated at current situation. Wondering why he s getting these infections without injury. Denies pain, shortness of breath. Subjective: Reports Pain Tolerable, Reports Tolerating Diet Well, Reports Adequate Oral Intake, Reports Urinating Without Difficulty, Denies Shortness of Breath, Denies Cough, Denies Chest Pain, Denies Abdominal Pain, Denies Nausea, Denies Vomiting - Objective Vital Signs Temperature 98.0 F 12/02/16 14:00 Pulse Rate 66 12/02/16 14:00 Respiratory Rate 17 12/02/16 14:00 Blood Pressure 130/76 12/02/16 14:00 O2 Saturation by Pulse Oximetry 96 12/02/16 14:00 Oxygen Delivery Method Room Air Oxygen Flow Rate 0 Intake and Output 11/30/16 12/01/16 12/02/16 23:59 23:59 23:59 Intake Total 4513 2724 1210 Output Total 2795 3200 2200 Balance 4928 -196 -990 General: Alert, Oriented x3, No Acute Distress HEENT: Atraumatic, Mucous membr. moist/pink Lungs: Clear to Auscultation Bilaterally, Normal Air Movement, Other (no crackle or wheeze) Cardiovascular: Regular Rate and Rhythm, Normal S1, Normal S2 Abdomen: Soft, Mild Distention, No Rigid, No Tenderness, No Rebounding Extremities: Edema, No Cyanosis, No Tenderness Peripheral Pulses: Radial (L): 1+, Radial (R): 1+ Skin: Other (multiple scabs across #2-3 digits left hand with callus) Neurological: Normal Speech Psych/Mental Status: Normal Mood Laboratory 12/02/16 07:55 12/02/16 06:05 12/02/16 12/02/16 12/02/16 14:26 08:30 07:55 RBC 3.23 L ESR 130 H POC Capillary Glucose 238 H 199 H C-Reactive Protein Vancomycin Trough 12/02/16 12/01/16 12/01/16 06:05 20:36 18:10 RBC ESR POC Capillary Glucose 199 H C-Reactive Protein 33.2 H Vancomycin Trough 13.4 H 12/01/16 18:08 RBC ESR POC Capillary Glucose 200 H C-Reactive Protein Vancomycin Trough Current Medications: Current meds reviewed in EMR. - Problems: Assessment/Plan (1) Cellulitis and abscess of foot Status: AcuteAssessment/Plan: Acute bacterial cellulitis with lymphangitis of the right foot and leg present on admit. GPC on culture, final results / sensitivity pending. On Zosyn and Vanco, s/p I&D on 11/30; appreciate ortho care. CRP and ESR very high, but improving so far. Anticipate he will need follow up with ID. Klebsiella pneumoniae on culture with gram positive cocci identification in process. Will narrow Abx when able (2) Insomnia Qualifiers: Insomnia type: primary Qualifier Code: (F51.01) Primary insomnia Status: AcuteAssessment/Plan: trazodone helpful (3) JESICA (acute kidney injury) Status: AcuteAssessment/Plan: Baseline creatinine appears to be 0.7-1.0, was 1.4 on 11/27 and vanco held for about 6 hours but foot looked worse so vanco restarted. Creatinine down to 1.2 and stable, continue to follow closely. Resolved (4) DM2 (diabetes mellitus, type 2) Qualifiers: Diabetes mellitus complication status: without complication Diabetes mellitus assistant terminal manager insulin use: with assistant terminal manager use Qualifier Code: (E11.9) Type 2 diabetes mellitus without complications Status: ChronicAssessment/ Plan: On basal lantus and high dose correction aspart, prandial aspart. 117-242 on recent testing. Hope to see some improvement as infection improves. (5) Anemia Qualifiers: Anemia type: other cause Other causes of anemia: chronic disease, other Qualifier Code: (D63.8) Anemia in other chronic diseases classified elsewhere Status: ChronicAssessment/Plan: Mild and chronic, no w/u at this time. Suspect due to acute/chronic infectious illness, with frequent blood draws contributing. (6) HTN (hypertension), benign Status: ChronicAssessment/Plan: well controlled (7) Hyponatremia Status: ChronicAssessment/Plan: At his personal baseline. (8) Nicotine dependence Qualifiers: Nicotine product type: cigarettes Substance use status: in withdrawal Qualifier Code: (F17.213) Nicotine dependence, cigarettes, with withdrawal Status: ChronicAssessment/Plan: cessation counseling, replacement therapy (9) Obesity (BMI 30.0-34.9) Status: ChronicAssessment/Plan: Complicates care of diabetes and cellulitis. (10) Atrial fibrillation Qualifiers: Atrial fibrillation type: paroxysmal Qualifier Code: (I48.0) Paroxysmal atrial fibrillation Status: AcuteAssessment/Plan: stable VTE Prophylaxis: Enoxaparin--held for surgery. Disposition: Unclear, may need PICC (awaiting cx) and correction IV abx. Using wound vac post surgery.
[2016-12-02] MEDS ORDERED: LIDOCAINE 1% (PRES FREE) 5 ML VIAL PF PRN (17:52)
[2016-12-02] MEDS ORDERED: LORAZEPAM 2 MG/ML 1ML SDV IV PRN (17:52)
[2016-12-02] MEDS: INSULIN GLARGINE (DOSE) 100 UNITS/ML UNIT SUB-Q SCH (20:56)
[2016-12-02] MEDS: TRAZODONE HCL 50 MG TABLET PO SCH (20:56)
[2016-12-03] MEDS: PIPERACILLIN-TAZO PREMIX BAG 3.375 G in Premix (D5W) 50 ml 1 EACH IV SCH ×4 (02:02→23:54)
[2016-12-03 06:51] LABS: HEMATOCRIT 29.9 % (32.0-52.0); HEMOGLOBIN 9.6 gm/l (14.0-18.0); MEAN CELL VOLUME 94.9 fl (80.0-94.0); MEAN CORPUSCULAR HEMOGLOBIN 30.5 pg (27.0-31.0); MEAN CORPUSCULAR HGB CONC 32.1 g/dl (33.0-37.0); RED CELL DISTRIBUTION WIDTH 12.2 % (11.5-14.5)
[2016-12-03 07:11] LABS: CALCIUM 9.2 mg/dL (8.6-10.3)
[2016-12-03 07:15] LABS: C-REACTIVE PROTEIN 23.4 mg/dl (<1.0)
[2016-12-03] MEDS: ASPIRIN (ENTERIC COATED) 325 MG TABLET.EC PO SCH ×2 (07:51→09:00)
[2016-12-03] MEDS: GABAPENTIN 300 MG CAPSULE PO SCH ×4 (07:51→20:40)
[2016-12-03] MEDS: OXYCODONE HCL 5 MG TABLET PO PRN ×3 (07:51→20:40)
[2016-12-03] MEDS: VANCOMYCIN HCL 2 G in SODIUM CHLORIDE 0.9% 500 ML IV SCH (07:52)
[2016-12-03] MEDS: INSULIN ASPART (DOSE) 100 UNITS/1 ML SUB-Q PRN (08:10)
--- NOTE | 2016-12-03 08:35 | PDOC43 ---
- Subjective Findings: Patient OK this morning, minimal pain, no new complaints. Subjective: Reports Pain Tolerable, Denies Nausea, Denies Vomiting, Denies Fever - Objective Vital Signs Temperature 98.7 F 12/03/16 01:15 Pulse Rate 66 12/03/16 01:15 Respiratory Rate 20 12/03/16 01:15 Blood Pressure 157/90 12/03/16 01:15 O2 Saturation by Pulse Oximetry 96 12/03/16 01:15 Oxygen Delivery Method Room Air Oxygen Flow Rate 0 Laboratory 12/03/16 06:30 12/03/16 06:30 12/03/16 12/02/16 12/02/16 06:30 20:55 18:09 RBC 3.15 L MCV 94.9 H MCHC 32.1 L ESR POC Capillary Glucose 274 H 174 H C-Reactive Protein 23.4 H 12/02/16 12/02/16 12/02/16 14:26 08:30 07:55 RBC MCV MCHC ESR 130 H POC Capillary Glucose 238 H 199 H C-Reactive Protein 12/02/16 06:05 RBC MCV MCHC ESR POC Capillary Glucose C-Reactive Protein 33.2 H Active Medication Orders Category Date Time Status Aspirin (Enteric Coated) [Ecotrin] Med 11/27/16 09:00 Active 325 mg PO DAILY Bisacodyl [Dulcolax] Med 11/26/16 21:[address] DAILY PRN Bisacodyl [Dulcolax] Med 11/26/16 21:35 Active 5 mg PO DAILY PRN Enoxaparin Sodium [Lovenox] Med 11/26/16 21:45 Hold 40 mg SUB-Q 2100 Gabapentin [Neurontin] Med 11/26/16 22:10 Active 300 mg PO TID Insulin Aspart (Dose) [Novolog (Dose)] Med 11/30/16 13:00 Active 5 units SUB-Q TIDWM Insulin Aspart (Dose) [Novolog (Dose)] Med 11/27/16 14:38 Active See Protocol SUB-Q WM/BEDTIME PRN Insulin Glargine (Dose) [Lantus (Dose)] Med 11/29/16 10:09 Active 25 units SUB-Q 2100 Lidocaine 1% (Pres Free) Med 12/02/16 17:52 Active 2 - 5 ml PF X1 PRN Lip [place] [Blistex] Med 11/26/16 21:35 Active 1 each TP PRN PRN Lisinopril [Prinivil] Med 11/27/16 09:00 Hold 10 mg PO DAILY Lorazepam [Ativan] Med 12/02/16 17:52 Active 0.5 - 1 mg IV X1 PRN Menthol/Cetylpyridinium [Cepacol] Med 11/26/16 21:35 Active 1 each PO PRN PRN Nicotine Polacrilex Gum [Nicorette Gum] Med 11/26/16 21:51 Active 2 mg PO Q1H PRN Ondansetron 4 mg/2ml Vial [Zofran] Med 11/26/16 21:39 Active 4 mg IV Q3H PRN Oxycodone HCl [Roxicodone] Med 11/28/16 08:58 Active 5 - 10 mg PO Q3H PRN Piperacillin-Tazo Premix Bag [Zosyn 3.375 G] 3.375 g Med 11/30/16 20:00 Active Premix (D5W) 50 ml 1 each IV Q6H Sodium Chloride 0.9% 100 ml Med 11/26/16 21:35 Active IV PRN Sodium Chloride 0.9% Flush [Normal Saline 10ml Flush] Med 11/26/16 21:35 Active 10 - 50 ml IV PRN PRN Sodium Chloride 0.9% Flush [Normal Saline 10ml Flush] Med 11/27/16 01:00 Active 10 ml IV Q8HR Trazodone HCl [Desyrel] Med 11/28/16 21:00 Active 50 mg PO BEDTIME Vancomycin HCl 2 g Med 11/28/16 01:00 Active Sodium Chloride 0.9% 500 ml IV Q18H Intake and Output 12/01/16 12/02/16 12/03/16 23:59 23:59 23:59 Intake Total 5335 2563 1149 Output Total 3200 3500 1999 Balance -476 [phone] -[phone] General: Afebrile, No Acute Distress HEENT: EOMI Lungs: Normal Air Movement Abdomen: Soft - Right Lower Extremity Incision: Drainage (20 cc serosanguinous drainage in VAC) Motor: Extensor Hallucis Longus: 5/5, Tibialis Anterior: 5/5, Gastrocnemius: 5/5 , Peroneals: 5/5, Quadriceps: 5/5 Gross Sensation to Light Touch: Present: Medial Plantar Nerve (diminished), Lateral Plantar Nerve (diminished) Capillary Refill: < 3 Seconds - Problems (1) Cellulitis and abscess of foot Status: AcuteAssessment/Plan: POD#3 R foot I&D with wound VAC (VAC changed 12/02) 1. Physical Therapy: [facility] RLE; train on crutches/walker/kneeling scooter 2. Pain Control: Oxycodone, adequate 3. DVT Prophylaxis: Lovenox 4. Disposition: PICC this AM, out today or tomorrow with STEPS for IV abx and wound VAC changes, f/u with [place] [facility] and likely Dr. Hawley for wound care 5. Medical Issues: per hospitalist Lamont Duenas MD
--- NOTE | 2016-12-03 09:40 | RAD ---
12/03/2016 9:29 AM CHEST - 1 VIEW History: PICC placement. Comparison: 12/21/2014 Findings: Single AP view of the chest is obtained. The lungs are clear with out effusion or pneumothorax. The cardiomediastinal silhouette is unremarkable.. The osseous structures are intact.. Right-sided PICC terminates within the lower SVC, just above the age of caval junction. IMPRESSION: No acute intrathoracic process. Right-sided PICC as above. Findings were called to Malgorzata the PICC nurse at approximately 0 935 hours on 12/03/2016.
--- NOTE | 2016-12-03 09:48 | SURGPATH ---
[facility] [address] [place] [id number] Patient Name: UZIEL ABRAMS MR#: [id number] : 1955 Gender: M Specimen #: [id number] Collected: 11/30/2016 Received: 12/02/2016 Reported: 12/03/2016 Submitting Phys: WOOD CABRERA Copy To Phys: [facility] MERLENE VALENTIN KEITH Clinical History / Pre-Operative Diagnosis: RIGHT FOOT CELLULITIS Specimen Source / Surgical Procedure Performed: RIGHT PLANTAR FOOT TISSUE Interpretation: RIGHT PLANTAR FOOT TISSUE: - FIBROFATTY TISSUE WITH ACUTE INFLAMMATION AND NECROSIS Electronically Signed Out Ryan Kirkland M.D. Gross Description: The specimen is received in a formalin filled container labeled with the patient's name and "right plantar foot tissue". An aggregate of soft, pale shepherd fibroconnective tissue fragments is 1.8 x 1.2 x 0.5 cm. Totally embedded in one cassette. Oc Zhou, PSauravA. Microscopic Description: A slide contains fibrofatty tissue with acute inflammation and necrosis. 1: 33247 L03.115
[2016-12-03] MEDS: INSULIN ASPART (DOSE) 100 UNITS/1 ML SUB-Q SCH ×3 (11:52→17:26)
--- NOTE | 2016-12-03 13:04 | PDOC43 ---
- Subjective Chief Complaint: Diabetic Right foot abscess Patient reports feeling ok. No respiratory, cardiac or GI problems. Pain not an issue. Pt asks if he can get wound care in [place], which would be much easier for him than traveling to [place] from [place]. - Objective Vital Signs Temperature 98.7 F 12/03/16 01:15 Pulse Rate 64 12/03/16 08:30 Respiratory Rate 20 12/03/16 08:30 Blood Pressure 136/71 12/03/16 08:30 O2 Saturation by Pulse Oximetry 95 12/03/16 08:30 Oxygen Delivery Method Room Air Oxygen Flow Rate 0 Vital Signs Last 12 Hours Temp Pulse Resp BP Pulse Ox 12/03/16 08:30 64 20 136/71 95 12/03/16 08:00 20 12/03/16 01:15 98.7 F 66 20 157/90 96 Intake and Output 12/01/16 12/02/16 12/03/16 23:59 23:59 23:59 Intake Total 2724 2563 1149 Output Total 3200 3500 1999 Balance -476 -937 -851 General: Alert, Cooperative Lungs: Clear to Auscultation Bilaterally Cardiovascular: Regular Rate and Rhythm Abdomen: Soft, Normal Bowel Sounds, Non-Distended Extremities: Other (wound vac on R foot. Color appears good.), No Edema Neurological: Normal Speech Psych/Mental Status: Other (appears to be at baseline state. Pt sl impatient with plan, asks about lab results.) Laboratory 12/03/16 06:30 12/03/16 06:30 12/03/16 12/03/16 12/02/16 11:38 06:30 20:55 RBC 3.15 L MCV 94.9 H MCHC 32.1 L ESR 142 H POC Capillary Glucose 169 H 274 H C-Reactive Protein 23.4 H 12/02/16 12/02/16 18:09 14:26 RBC MCV MCHC ESR POC Capillary Glucose 174 H 238 H C-Reactive Protein Current Medications: Current meds reviewed in EMR. Active Medications Aspirin (Ecotrin) 325 mg PO DAILY NANCY Last Admin: 12/03/16 07:51 Dose: 325 mg Benzocaine/Menthol (Cepacol) 1 each PO PRN PRN PRN Reason: Sore Throat Last Admin: 12/01/16 23:04 Dose: 1 each Bisacodyl (Dulcolax) 10 mg [place] DAILY PRN PRN Reason: Constipation Bisacodyl (Dulcolax) 5 mg PO DAILY PRN PRN Reason: Constipation Enoxaparin Sodium (Lovenox) 40 mg SUB-Q 2100 [facility] Last Admin: 11/29/16 20:36 Dose: 40 mg Gabapentin (Neurontin) 300 mg PO TID [facility] Last Admin: 12/03/16 07:51 Dose: 300 mg Sodium Chloride (Sodium Chloride 0.9%) 100 mls @ 25 mls/hr IV PRN PRN PRN Reason: Flush Last Admin: 12/01/16 19:04 Dose: 25 mls/hr Vancomycin HCl 2 g/ Sodium (Chloride) 540 mls @ 270 mls/hr IV Q18H [facility] Last Admin: 12/03/16 07:52 Dose: 270 mls/hr Piperacillin/Tazobactam/Dextrose 3.375 g/ Premix (D5W) 50 ml 50 mls @ 100 mls/ hr IV Q6H [facility] Last Admin: 12/03/16 02:02 Dose: 100 mls/hr Insulin Aspart (Novolog (Dose)) 0 units SUB-Q WM/BEDTIME PRN; Protocol PRN Reason: Blood Sugar > Last Admin: 12/03/16 08:10 Dose: 4 units Insulin Aspart (Novolog (Dose)) 5 units SUB-Q TIDWM [facility] Last Admin: 12/03/16 11:52 Dose: 9 units Insulin Glargine (Lantus (Dose)) 25 units SUB-Q 2100 [facility] Last Admin: 12/02/16 20:56 Dose: 25 units Lidocaine HCl (Lidocaine 1% (Pres Free)) 2 - 5 ml PF X1 PRN PRN Reason: Pain from PICC line placement Last Admin: 12/03/16 09:48 Dose: 4 ml Lisinopril (Prinivil) 10 mg PO DAILY [facility] Last Admin: 11/27/16 09:11 Dose: 10 mg Lorazepam (Ativan) 0.5 - 1 mg IV X1 PRN PRN Reason: Anxiety during PICC Placement Nicotine Polacrilex (Nicorette Gum) 2 mg PO Q1H PRN PRN Reason: Withdrawal Symptoms Ondansetron HCl (Zofran) 4 mg IV Q3H PRN PRN Reason: Nausea/Vomiting Oxycodone HCl (Roxicodone) 5 - 10 mg PO Q3H PRN PRN Reason: Pain (Moderate) Last Admin: 12/03/16 07:51 Dose: 5 mg Petrolatum/Paraffin/Mineral Oil (Blistex) 1 each TP PRN PRN PRN Reason: Dry and/or chapped lips Sodium Chloride (Normal Saline 10ml Flush) 10 - 50 ml IV PRN PRN PRN Reason: IV Flush Last Admin: 12/02/16 20:56 Dose: 10 ml Sodium Chloride (Normal Saline 10ml Flush) 10 ml IV Q8HR NANCY Last Admin: 12/03/16 07:51 Dose: 10 ml Trazodone HCl (Desyrel) 50 mg PO BEDTIME [facility] Last Admin: 12/02/16 20:56 Dose: 50 mg - Problems: Assessment/Plan (1) Cellulitis and abscess of foot Status: AcuteAssessment/Plan: Acute bacterial cellulitis with lymphangitis of the right foot and leg present on admit. On Zosyn and Vanco, s/p I&D on 11/30; appreciate ortho care. CRP and ESR very high, but mostly improving so far. CRP down to 23, ESR took a small jump up. Klebsiella pneumoniae, Enterococcus cloacae, Staph aureus all identified. Will defer further revision abx to ID. Will inquire about where pt can get wound care. (2) DM2 (diabetes mellitus, type 2) Qualifiers: Diabetes mellitus complication status: without complication Diabetes mellitus long term care social worker insulin use: with residential use Qualifier Code: (E11.9) Type 2 diabetes mellitus without complications Status: ChronicAssessment/ Plan: On basal lantus and high dose correction aspart, prandial aspart. BG: Laboratory Tests 11/28/16 11/30/16 12/02/16 05:10 05:30 14:26 ESR > 150 H 134 H Glucose POC Capillary Glucose 238 H C-Reactive Protein 41.8 H 12/02/16 12/02/16 12/03/16 18:09 20:55 06:30 ESR Glucose 188 H POC Capillary Glucose 174 H 274 H C-Reactive Protein 12/03/16 11:38 ESR Glucose POC Capillary Glucose 169 H C-Reactive Protein Hope to see some improvement as infection improves. (3) Anemia Qualifiers: Anemia type: other cause Other causes of anemia: chronic disease, other Qualifier Code: (D63.8) Anemia in other chronic diseases classified elsewhere Status: ChronicAssessment/Plan: Hb 9.6 today Mild and chronic, no w/u at this time. Suspect due to acute/chronic infectious illness, with frequent blood draws contributing. VTE Prophylaxis: Enoxaparin- Disposition: Unclear, may need PICC (anticipate review with ID) and residential IV abx. Using wound vac post surgery.
[2016-12-03] MEDS ORDERED: PUMP TUBING ONE ×2 (17:17→20:34)
[2016-12-03] MEDS: SODIUM CHLORIDE 0.9% 100 ML IV PRN (17:25)
[2016-12-03] MEDS: INSULIN GLARGINE (DOSE) 100 UNITS/ML UNIT SUB-Q SCH (20:40)
[2016-12-03] MEDS: TRAZODONE HCL 50 MG TABLET PO SCH (20:40)
[2016-12-04] MEDS: VANCOMYCIN HCL 2 G in SODIUM CHLORIDE 0.9% 500 ML IV SCH (00:41)
[2016-12-04] MEDS: PIPERACILLIN-TAZO PREMIX BAG 3.375 G in Premix (D5W) 50 ml 1 EACH IV SCH (05:35)
[2016-12-04] MEDS: OXYCODONE HCL 5 MG TABLET PO PRN (05:35)
--- NOTE | 2016-12-04 07:16 | PDOC43 ---
- Subjective Chief Complaint: Diabetic Right foot abscess Patient reports feeling ok. Breathing fine. Stomach fine. No pain complaint. - Objective Vital Signs Temperature 98.3 F 12/04/16 01:36 Pulse Rate 70 12/04/16 01:36 Respiratory Rate 18 12/04/16 01:36 Blood Pressure 137/74 12/04/16 01:36 O2 Saturation by Pulse Oximetry 95 12/04/16 01:36 Oxygen Delivery Method Room Air Oxygen Flow Rate 0 Vital Signs Last 12 Hours Temp Pulse Resp BP Pulse Ox 12/04/16 01:36 98.3 F 70 18 137/74 95 12/03/16 20:00 18 12/03/16 19:51 98.1 F 61 18 144/80 96 Intake and Output 12/02/16 12/03/16 12/04/16 23:59 23:59 23:59 Intake Total 2563 1149 1190 Output Total 3500 [address] [facility] -937 [phone] -260 General: Alert, Cooperative (appears irritated about various things, such as the phone not working, having dressing changes before leaving, having to go to [place] for wound care/antibiotics.) HEENT: Atraumatic Lungs: Clear to Auscultation Bilaterally Cardiovascular: Regular Rate and Rhythm Abdomen: Soft, Normal Bowel Sounds, Non-Distended Extremities: Other (Foot dressed.), No Edema Skin: Normal Color Neurological: Normal Speech Psych/Mental Status: Other (appears at baseline.) Laboratory 12/03/16 06:30 12/04/16 04:13 12/03/16 12/03/16 12/03/16 20:27 16:28 11:38 RBC MCV MCHC ESR POC Capillary Glucose 175 H 183 H 169 H C-Reactive Protein 12/03/16 06:30 RBC 3.15 L MCV 94.9 H MCHC 32.1 L ESR 142 H POC Capillary Glucose C-Reactive Protein 23.4 H Current Medications: Current meds reviewed in EMR. Active Medications Aspirin (Ecotrin) 325 mg PO DAILY NANCY Last Admin: 12/03/16 09:00 Dose: Not Given Benzocaine/Menthol (Cepacol) 1 each PO PRN PRN PRN Reason: Sore Throat Last Admin: 12/01/16 23:04 Dose: 1 each Bisacodyl (Dulcolax) 10 mg [place] DAILY PRN PRN Reason: Constipation Bisacodyl (Dulcolax) 5 mg PO DAILY PRN PRN Reason: Constipation Enoxaparin Sodium (Lovenox) 40 mg SUB-Q 2100 [facility] Last Admin: 11/29/16 20:36 Dose: 40 mg Gabapentin (Neurontin) 300 mg PO TID [facility] Last Admin: 12/03/16 20:40 Dose: 300 mg Sodium Chloride (Sodium Chloride 0.9%) 100 mls @ 25 mls/hr IV PRN PRN PRN Reason: Flush Last Admin: 12/03/16 17:25 Dose: 25 mls/hr Vancomycin HCl 2 g/ Sodium (Chloride) 540 mls @ 270 mls/hr IV Q18H [facility] Last Admin: 12/04/16 00:41 Dose: 270 mls/hr Piperacillin/Tazobactam/Dextrose 3.375 g/ Premix (D5W) 50 ml 50 mls @ 100 mls/ hr IV Q6H [facility] Last Admin: 12/04/16 05:35 Dose: 100 mls/hr Insulin Aspart (Novolog (Dose)) 0 units SUB-Q WM/BEDTIME PRN; Protocol PRN Reason: Blood Sugar > Last Admin: 12/03/16 08:10 Dose: 4 units Insulin Aspart (Novolog (Dose)) 5 units SUB-Q TIDWM [facility] Last Admin: 12/03/16 17:26 Dose: 9 units Insulin Glargine (Lantus (Dose)) 25 units SUB-Q 2100 [facility] Last Admin: 12/03/16 20:40 Dose: 25 units Lidocaine HCl (Lidocaine 1% (Pres Free)) 2 - 5 ml PF X1 PRN PRN Reason: Pain from PICC line placement Last Admin: 12/03/16 09:48 Dose: 4 ml Lisinopril (Prinivil) 10 mg PO DAILY [facility] Last Admin: 11/27/16 09:11 Dose: 10 mg Lorazepam (Ativan) 0.5 - 1 mg IV X1 PRN PRN Reason: Anxiety during PICC Placement Nicotine Polacrilex (Nicorette Gum) 2 mg PO Q1H PRN PRN Reason: Withdrawal Symptoms Ondansetron HCl (Zofran) 4 mg IV Q3H PRN PRN Reason: Nausea/Vomiting Oxycodone HCl (Roxicodone) 5 - 10 mg PO Q3H PRN PRN Reason: Pain (Moderate) Last Admin: 12/04/16 05:35 Dose: 5 mg Petrolatum/Paraffin/Mineral Oil (Blistex) 1 each TP PRN PRN PRN Reason: Dry and/or chapped lips Sodium Chloride (Normal Saline 10ml Flush) 10 - 50 ml IV PRN PRN PRN Reason: IV Flush Last Admin: 12/02/16 20:56 Dose: 10 ml Sodium Chloride (Normal Saline 10ml Flush) 10 ml IV Q8HR [facility] Last Admin: 12/04/16 00:57 Dose: Not Given Trazodone HCl (Desyrel) 50 mg PO BEDTIME [facility] Last Admin: 12/03/16 20:40 Dose: 50 mg - Problems: Assessment/Plan (1) Cellulitis and abscess of foot Status: AcuteAssessment/Plan: Acute bacterial cellulitis with lymphangitis of the right foot and leg present on admit. On Zosyn and Vanco, s/p I&D on 11/30; appreciate ortho care. CRP and ESR very high, but mostly improving so far. CRP down to 23, ESR took a small jump up. Klebsiella pneumoniae, Enterococcus cloacae, Staph aureus all identified. Will defer further revision abx to ID. Wound care from DR Hawley at [place]; he can decide best course of action, greg in regard to revascularization . (2) DM2 (diabetes mellitus, type 2) Qualifiers: Diabetes mellitus complication status: without complication Diabetes mellitus detention insulin use: with detention use Qualifier Code: (E11.9) Type 2 diabetes mellitus without complications Status: ChronicAssessment/ Plan: On basal lantus and high dose correction aspart, prandial aspart. (3) Anemia Qualifiers: Anemia type: other cause Other causes of anemia: chronic disease, other Qualifier Code: (D63.8) Anemia in other chronic diseases classified elsewhere Status: ChronicAssessment/Plan: Hb 9.6 Mild and chronic, no w/u at this time. Suspect due to acute/chronic infectious illness, with frequent blood draws contributing. VTE Prophylaxis: Enoxaparin- Disposition: anticipate arcelia term IV abx, through [facility]. Using wound vac post surgery.
[2016-12-04] MEDS: INSULIN ASPART (DOSE) 100 UNITS/1 ML SUB-Q PRN (07:24)
[2016-12-04 07:45] VITALS: BP 135/78
--- NOTE | 2016-12-04 08:10 | PDOC43 ---
- Subjective Findings: Patient doing "OK" this morning, aware of and in agreement with discharge plan. Subjective: Reports Flatus, Reports Pain Tolerable - Objective Vital Signs Temperature 97.6 F 12/04/16 07:45 Pulse Rate 63 12/04/16 07:45 Respiratory Rate 18 12/04/16 07:45 Blood Pressure 135/78 12/04/16 07:45 O2 Saturation by Pulse Oximetry 99 12/04/16 07:45 Oxygen Delivery Method Room Air Oxygen Flow Rate 0 Laboratory 12/03/16 06:30 12/04/16 04:13 12/04/16 12/03/16 12/03/16 07:10 20:27 16:28 ESR POC Capillary Glucose 190 H 175 H 183 H 12/03/16 12/03/16 11:38 06:30 ESR 142 H POC Capillary Glucose 169 H Active Medication Orders Category Date Time Status Aspirin (Enteric Coated) [Ecotrin] Med 11/27/16 09:00 Active 325 mg PO DAILY Bisacodyl [Dulcolax] Med 11/26/16 21:35 Active 10 mg [place] DAILY PRN Bisacodyl [Dulcolax] Med 11/26/16 21:35 Active 5 mg PO DAILY PRN Enoxaparin Sodium [Lovenox] Med 11/26/16 21:45 Hold 40 mg SUB-Q 2100 Gabapentin [Neurontin] Med 11/26/16 22:10 Active 300 mg PO TID Insulin Aspart (Dose) [Novolog (Dose)] Med 11/30/16 13:00 Active 5 units SUB-Q TIDWM Insulin Aspart (Dose) [Novolog (Dose)] Med 11/27/16 14:38 Active See Protocol SUB-Q WM/BEDTIME PRN Insulin Glargine (Dose) [Lantus (Dose)] Med 11/29/16 10:09 Active 25 units SUB-Q 2100 Lidocaine 1% (Pres Free) Med 12/02/16 17:52 Active 2 - 5 ml PF X1 PRN Lip [place] [Blistex] Med 11/26/16 21:35 Active 1 each TP PRN PRN Lisinopril [Prinivil] Med 11/27/16 09:00 Hold 10 mg PO DAILY Lorazepam [Ativan] Med 12/02/16 17:52 Active 0.5 - 1 mg IV X1 PRN Menthol/Cetylpyridinium [Cepacol] Med 11/26/16 21:35 Active 1 each PO PRN PRN Nicotine Polacrilex Gum [Nicorette Gum] Med 11/26/16 21:51 Active 2 mg PO Q1H PRN Ondansetron 4 mg/2ml Vial [Zofran] Med 11/26/16 21:39 Active 4 mg IV Q3H PRN Oxycodone HCl [Roxicodone] Med 11/28/16 08:58 Active 5 - 10 mg PO Q3H PRN Piperacillin-Tazo Premix Bag [Zosyn 3.375 G] 3.375 g Med 12/03/16 17:30 Active Premix (D5W) 50 ml 1 each IV Q6H Sodium Chloride 0.9% 100 ml Med 11/26/16 21:35 Active IV PRN Sodium Chloride 0.9% Flush [Normal Saline 10ml Flush] Med 11/26/16 21:35 Active 10 - 50 ml IV PRN PRN Sodium Chloride 0.9% Flush [Normal Saline 10ml Flush] Med 11/27/16 01:00 Active 10 ml IV Q8HR Trazodone HCl [Desyrel] Med 11/28/16 21:00 Active 50 mg PO BEDTIME Vancomycin HCl 2 g Med 11/28/16 01:00 Active Sodium Chloride 0.9% 500 ml IV Q18H Intake and Output 12/02/16 12/03/16 12/04/16 23:59 23:59 23:59 Intake Total 2563 1149 1190 Output Total 3500 0068 1450 [facility] -[phone] General: Afebrile, No Acute Distress Lungs: Normal Air Movement Skin: Normal Color, Warm, Dry Neurological: Grossly Intact, Alert, Oriented x 4 - Right Lower Extremity Incision: Dressing Clean/Dry/Intact, Drainage (50 cc serosanguinous in VAC), No Erythema Motor: Extensor Hallucis Longus: 5/5, Tibialis Anterior: 5/5, Gastrocnemius: 5/5 , Peroneals: 5/5, Quadriceps: 5/5 Gross Sensation to Light Touch: Present: Deep Peroneal Nerve, Superficial Peroneal Nerve, Medial Plantar Nerve (diminished), Lateral Plantar Nerve ( diminished) - Problems (1) Cellulitis and abscess of foot Status: AcuteAssessment/Plan: POD#4 R foot I&D with wound VAC (VAC changed 12/02, changing in STEPS this AM) 1. Physical Therapy: [facility] RLE; train on crutches/walker/kneeling scooter 2. Pain Control: Oxycodone, adequate 3. DVT Prophylaxis: Lovenox 4. Disposition: PICC in place, VAC change this AM, discharge today with followup today at [place] [facility] for JAKE Fernandez, will see Hawley next week to assume care for this foot. 5. Medical Issues: per hospitalist Lamont Duenas MD
[2016-12-04] MEDS: GABAPENTIN 300 MG CAPSULE PO SCH (08:58)
[2016-12-04] MEDS: ASPIRIN (ENTERIC COATED) 325 MG TABLET.EC PO SCH (08:58)
[2016-12-04] MEDS: INSULIN ASPART (DOSE) 100 UNITS/1 ML SUB-Q SCH (09:00)
--- NOTE | 2016-12-04 13:22 | DS ---
Umberto Alexandra [id number] DATE OF ADMISSION: 11/26/2016 DATE OF DISCHARGE: 12/03/2016 DISCHARGE DIAGNOSES: 1. Right foot diabetic foot abscess, status post incision and drainage on 11/[address] Duenas, culture showing multiple organisms including Klebsiella pneumonia, Streptococcus dysgalactiae, Enterobacter cloacae, Staphylococcus aureus, and Staphylococcus epidermidis. 2. Anemia with a hemoglobin of 9.6 on 12/03/2016 attributed to illness and frequent blood draws. 3. Acute kidney injury with a creatinine to 1.4 on 11/27 improved to 1.1 by 12/04/2016. 4. History of smoking. 5. Concern for peripheral vascular disease. 6. Previous history of septic left hip 2014. 7. Diabetes mellitus type 2. 8. Hypertension. 9. Osteoarthritis. 10. Dyslipidemia. 11. History of proximal atrial fibrillation in the distant past. CONSULTATIONS: Dr. Duenas with drainage procedure performed. REASON FOR ADMISSION: The patient is a 60-year-old male with a history of diabetes and previous complicated septic arthritis left hip whose previously had a right sided hip arthroplasty and right sided tib/fib reduction and internal fixation in the past. He presented to the emergency department with a two day history of worsening redness, swelling and warm starting in the right foot and appearing to radiate to the calf and groin. He has had no fevers or chills, but with a prior history of complicated septic arthritis he was concerned about infection and came for evaluation. In the emergency department he was noted to have a low grade fever, elevated white count, and evidence of cellulitis and was referred to the hospitalist service for plans for IV antibiotics and orthopedic consult. Patient's labs on admission showed a white blood cell count of 21.3, hemoglobin 11.9, platelets 300. His initial sed rate was greater than 150. His INR was 0.91, lactate 1.4, initial sodium 131, potassium 4.4, BUN 33, creatinine 1.3, glucose 233, calcium 9.5, magnesium 1.6, AST 12, ALT 15, alk phos 120. C-reactive protein 39.7. Influenza testing was negative. A duplex scan of the lower extremities showed no evidence of deep venous thrombosis. Foot x-ray showed the diffuse edema of the forefoot with air, evidence of cellulitis with gas forming organism, no evidence of osteomyelitis, severe osteoarthritis with capsular hydroxyapatite, deposition at the first metatarsophalangeal joint, edema in the right ankle, and internal fixation of the distal fibula with a broken screw. Dr. Duenas was consulted and patient underwent incision and drainage on 11/30/2016. Pathology from that time showed fibrofatty tissue with acute inflammation and necrosis. Cultures performed at the time showed several different organisms, superficial showed Klebsiella pneumonia which was not multidrug resistant, Staph aureus which was not methicillin resistant Staphylococcus aureus and Staph epidermidis The deeper cultures showed Klebsiella pneumonia with a similar resistance profile, Enterobacter cloacae and moderate growth Streptococcus dysgalactiae. Patient had been treated with vancomycin and Zosyn and remained afebrile from after 11/28/2016. Blood pressures remained stable. The patient received a wound VAC on his foot. Plans were made for anticipated longer term IV antibiotics and he had a PICC line placed. He is anticipated to be following up with [facility] regarding longer term care for this. Dr. Duenas expresses concern about the vascular status of this extremity and would like Dr. Hawley to be able to review the foot and consider for additional vascular consultation. Patient is anticipated to be discharged today December 04. DISCHARGE MEDICATIONS: 1. Aspirin 325 mg daily. 2. Diclofenac 5 mg by mouth twice daily. 3. Gabapentin 300 mg by mouth twice daily. 4. Amaryl 4 mg by mouth daily. 5. Lantus increased to 25 units subcutaneously daily, although he may adjust this if having low blood sugars. 6. Lisinopril 10 mg by mouth daily. 7. Metformin 1000 mg by mouth twice daily. 8. Nicotine gum as needed. 9. Oxycodone 5 mg by mouth twice daily. 10. Zosyn 3.375 IV every 6 hours. 11. Vancomycin 2 gm every 18 hours. Because [facility] is no longer using vancomycin and [place] pumps we will be deferring to [facility] for addressing his vancomycin needs. Patient had been seen at [facility] previously for his hip. He will also follow up with them regarding his wound care. DIET: Diabetic diet as tolerated. ACTIVITY: Dr. Duenas requests no weightbearing on his foot. LABORATORY: His last sed rate on 12/03 was 142. Last CRP was 23.4. DISCHARGE FOLLOW UP: Today 12/04/2016 at [facility]. He also has an appointment with Dr. Lady Villalta 12/11/2016 at 1:10 p.m. JOB: [id number] CC: Dr. Pawan Nowak
--- NOTE | 2016-12-07 12:52 | OP ---
Umberto ABRAMS : 1955 [id number] DATE OF SERVICE: November 30, 2016 PREOPERATIVE DIAGNOSIS: Left foot infection with diabetic abscess on the plantar surface of the left foot. POSTOPERATIVE DIAGNOSIS: Left foot infection with diabetic abscess on the plantar surface of the left foot. PROCEDURE PERFORMED: LEFT FOOT IRRIGATION AND DEBRIDEMENT WITH WOUND VAC PLACEMENT. SURGEON: Lamont Duenas M.D. EMPLOYEE COUNSELOR: None. ANESTHESIA: Nory AndersonNRonan SPECIMENS: The material sent to the laboratory was swabs and tissue for culture. ESTIMATED BLOOD LOSS: 10 mL. FLUIDS REPLACED: 600 mL of crystalloid. TOURNIQUET TIME: None. IMPLANTS: Wound VAC sponges times two. DRAINS: Wound VAC. INDICATIONS: This is a 60-year-old gentleman with a very complicated history including several spontaneous infections and poorly controlled diabetes. He presented through the ED and was admitted for cellulitis on his right lower extremity. After several days in the hospital including orthopedic evaluation he began to declare with a formation of an abscess on the plantar surface of his right foot near the base of his second toe. Given the presence of this abscess and his continued elevation of inflammatory markers he was offered an irrigation and debridement in order to address the fluid collection. Risks, benefits and alternatives were discussed with the patient particularly noting that this was not likely to be a definitive procedure and he understood this. He signed a consent form and he was taken to the operating room. DESCRIPTION OF PROCEDURE: The patient was identified in the pre-operative holding area and marked with an indelible marker and then taken to the operating room where he was placed in supine position on the operating room table. General anesthesia was induced, perioperative antibiotics were administered. A well padded pre-calibrated nonsterile tourniquet was placed on his left upper thigh. He was prepped and draped in the usual sterile fashion for surgery. An operative time out was performed and confirmed by all members of the operative team. A longitudinal incision was made overlying the area necrotic appearing tissue and significant purulence was encountered. Tissue was obtained for culture and swabs were taken. The plantar surface of the foot was debrided back until we reach a healthy bleeding rim. This included removing some callus from the distal portion of his foot as well as subcutaneous tissue down to the level of the flexor tendons to the second toe and third toe. The area of necrosis also moved up to the dorsal surface of the foot around this toe and there was expressible purulence in several spots. We debrided back as much as I felt that I could take to get to a satisfactory bleeding bed and not leave any necrotic tissue in the wound bed. There were no identified sinus tracts at this point. We copiously irrigated with a pulse lavage and then placed to wound VAC sponges into the wound bed at applied the occlusive dressing over the three central tones getting good suction with the Kamila pad. The drapes were broken down. The patient's foot was wrapped with an MAX bandage and he was transferred to a stretcher and taken postoperatively to the postanesthesia care unit in stable condition. There were no observed intraoperative complications during this procedure. Job [id number] Cc: [facility]
== END 2016-12-04 09:50 | disposition home or self-care (01) | DRG 623 ==
LOC: ED 16:25 → MS 18:47
PROVIDERS: ADMIT Family Medicine; ATTEND Family Medicine
PROC: 0JBQ0ZZ Excision of Right Foot Subcutaneous Tissue and Fascia, Open Approach (ICD-10-PCS; principal; 2016-11-30)
DX: E11.628 Type 2 diabetes mellitus with other skin complications (principal); L03.115 Cellulitis of right lower limb; L02.611 Cutaneous abscess of right foot; I10 Essential (primary) hypertension; M19.90 Unspecified osteoarthritis, unspecified site; E78.5 Hyperlipidemia, unspecified; I48.0 Paroxysmal atrial fibrillation; B96.1 Klebsiella pneumoniae [K. pneumoniae] as the cause of diseases classified elsewhere; B95.2 Enterococcus as the cause of diseases classified elsewhere; B95.62 Methicillin resistant Staphylococcus aureus infection as the cause of diseases classified elsewhere; B95.5 Unspecified streptococcus as the cause of diseases classified elsewhere; D64.9 Anemia, unspecified; N17.9 Acute kidney failure, unspecified; Z87.891 Personal history of nicotine dependence; I73.9 Peripheral vascular disease, unspecified